=== PATIENT | male | born 1955 | race Caucasian/White ===

== ENCOUNTER 2019-09-14 13:30 | Outpatient (RCR) | payer MEDICARE, BC, SELFPAY | END 2019-09-15 23:59 | LOC: DC 13:30 | PROVIDERS: Visit Provider Nurse Practitioner | DX: Z71.3 Dietary counseling and surveillance (principal); E11.9 Type 2 diabetes mellitus without complications | CPT/HCPCS: 97802; G0108 ==

== ENCOUNTER 2019-10-05 15:00 | Outpatient (RCR) | payer MEDICARE, BC, SELFPAY ==
[2017-07-19 10:10] VITALS: BMI 25.8
== END 2019-10-15 23:59 | disposition home or self-care (01) ==
LOC: DC 15:00
PROVIDERS: Visit Provider Nurse Practitioner
DX: Z71.3 Dietary counseling and surveillance (principal); E11.9 Type 2 diabetes mellitus without complications
CPT/HCPCS: G0108

== ENCOUNTER 2019-10-18 13:00 | Outpatient (RCR) | payer MEDICARE, BC, SELFPAY ==
[2017-07-19 10:10] VITALS: BMI 25.8
== END 2019-11-15 23:59 ==
LOC: DC 13:00
PROVIDERS: Visit Provider Nurse Practitioner
DX: Z71.3 Dietary counseling and surveillance (principal); E11.9 Type 2 diabetes mellitus without complications
CPT/HCPCS: 97803

== ENCOUNTER 2019-11-29 13:30 | Outpatient (RCR) | payer MEDICARE, BC, SELFPAY ==
[2017-07-19 10:10] VITALS: BMI 25.8
== END 2019-12-16 23:59 ==
LOC: DC 13:30
PROVIDERS: Visit Provider Nurse Practitioner
DX: Z71.3 Dietary counseling and surveillance (principal); E11.9 Type 2 diabetes mellitus without complications
CPT/HCPCS: 97803; G0109

== ENCOUNTER 2020-01-09 13:00 | Outpatient (RCR) | payer MEDICARE, BC, SELFPAY ==
[2017-07-19 10:10] VITALS: BMI 25.8
== END 2020-01-14 23:59 ==
LOC: DC 13:00
PROVIDERS: Visit Provider Nurse Practitioner
DX: Z71.3 Dietary counseling and surveillance (principal); E11.9 Type 2 diabetes mellitus without complications
CPT/HCPCS: 97803; G0109

== ENCOUNTER → 2020-03-09 12:28 | Outpatient (CLI) | payer MEDICARE, BC, SELFPAY ==
--- NOTE | 2020-03-09 12:44 | RAD_ITS ---
STUDY: X-RAY - CERVICAL SPINE REASON FOR EXAM: Male, 64 years old. CHRONIC NECK PAIN -- HX OF FUSION TECHNIQUE: 5 view(s) of the cervical spine were obtained. COMPARISON: None FINDINGS: Normal anterior atlantoaxial articulation. Normal odontoid process. The patient is status post anterior fusion from C5 to T1. There is multilevel spondylosis with narrowing of disc spaces from C5 to T1. There is near fusion at. The disc height from C2 to C5 is fairly well preserved. Variable degrees from mild to moderate neural foraminal encroachment noted. The soft tissue structures are unremarkable. There is no demonstrated fracture of the cervical spine. RAD/Cerv Spine 4 or 5 Views IMPRESSION: Postoperative changes as described above with underlying degenerative disease. No acute fracture or subluxation seen. Electronically Signed: Gemma Lipscomb MD at 0:26 EDT , Service support ,
== END ==
PROVIDERS: PCP Nurse Practitioner; Referring Provider Nurse Practitioner; Visit Provider Nurse Practitioner
DX: M54.2 Cervicalgia (principal)
CPT/HCPCS: 72050

== ENCOUNTER 2020-05-17 16:34 | Emergency (ER) | payer MEDICARE, BC, SELFPAY ==
[2020-05-17 16:35] VITALS: BP 150/96; PULSE 101; RESP 20; TEMP 36.4; O2SAT 97; BMI 27.3
--- NOTE | 2020-05-17 17:01 | ED.DCSUM_ITS ---
History of Present Illness Chief Complaint: Eye Problem Informant: Patient Onset: Today Narrative: Presents with left eye burning after accidental splash of 7 insect killer 1 hour prior to arrival. States chemical used on gardening with vegetables and accidentally turned and sprayed him in the face. He states only burning to his left eye he did flush it with water. States some blood in his nose and mouth. Denies throat pain or abdominal pain. No fevers. He does not wear contacts. Occasional reading glasses. Recent cataract repair this past October. He states no changes in vision. Patient brought the label, apparently noted pyrenthroid product that can cause numbness and tingling to the skin. He states mild on his hands. No facial tingling. Prior similar symptoms: No Past Medical History - Allergies and Home Meds Allergies/Adverse Reactions: Allergies alcohol Allergy (Verified 07/19/17 10:12) Other Primary Care Physician: Bernarda Walters NP-C [Primary Care Provider] - Past Medical History: - - Diabetes, hypertension, hyperlipidemia Surgical History: cataract, cholecystectomy Smoking Status: Never smoker - Family History Maternal Family History: Reports: No pertinent history Review of Systems General: Denies: Chills, Fever, Sweats Eyes: Reports: - - Left eye burning. Denies: Visual changes - bilaterally, Di plopia ENT: Denies: Rhinorrhea, Sore throat Cardiovascular: Denies: Chest pain, Palpitations Respiratory: Denies: Dyspnea, Cough, Dyspnea on exertion Gastrointestinal: Denies: Abdominal pain, Nausea, Vomiting, Diarrhea, Melena, Hematochezia Genitourinary: Denies: Dysuria, Hematuria, Frequency Musculoskeletal: Denies: Back pain, Extremity Pain Skin: Denies: Rash, Wounds Neurological: Denies: Headache, Weakness, Numbness Physical Exam Vital Signs/Narrative: Vital Signs Temp Pulse Resp BP Pulse Ox 05/17/20 16:35 97.6 F L 101 H 230 H 150/96 H 97 Inital Vital Signs reviewed: Yes General: Well nourished, Well developed, No Acute Distress Head: Normocephalic, Atraumatic Eyes: Perrl, EOMI, - - No erythema of the sclera, no gross visualization of any injury. No pain with eye movement. ENT: Moist mucous membranes, No rhinorrhea Neck: Supple, Nontender Cardiovascular: Regular rate, Regular rhythm, No murmurs Respiratory: No distress, CTA bilaterally, Chest nontender Abdomen: Soft, Nontender, Nondistended, Normal bowel sounds Back: Nontender, Normal Inspection Extremities: Nontender, No edema Skin: Normal color, No rash Neurological: Alert, Oriented x3, Cranial nerves II-XII grossly intact, Normal Strength, Normal Sensation Psychological: Normal affect, Normal Mood Diagnostic/Tx/Re-eval - Medical Decision Making Patient nontoxic due to chemical exposure to the eye with burning, tetracaine will be placed the left eye with Hal lens and a saline flush prior to any other extensive exams at this time. 0620: After irrigation symptoms improved. Visual acuity was 20/25 each eye. Litmus paper with pH measure was neutral on both eyes. Patient will use rewetting drops as needed Follow-up with his eye doctor for reevaluation as an outpatient. ED Disposition - Plan for ED Patient: Disposition: Home or Assisted Living Diagnosis: Chemical injury of eye Instructions: ED Exp Chemical Eye Referrals: Bernarda Walters, CALE-C [Primary Care Provider] - Additional Instructions: Follow-up with your eye doctor for reevaluation. Use rewetting drops as needed.
[2020-05-17] MEDS: Tetracaine 0.5% Ophthalmic Bottle 1 DRP LEFT EYE (17:12)
[2020-05-17 18:10] VITALS: BP 148/75; PULSE 105; RESP 16; O2SAT 97
== END 2020-05-17 18:55 | disposition home or self-care (01) ==
PROVIDERS: Emergency Provider Emergency Medicine; PCP Nurse Practitioner
DX: T26.92XA Corrosion of left eye and adnexa, part unspecified, initial encounter (principal); Y93.9 Activity, unspecified; Y92.9 Unspecified place or not applicable; I10 Essential (primary) hypertension; E11.9 Type 2 diabetes mellitus without complications; E78.5 Hyperlipidemia, unspecified; Z79.4 Long term (current) use of insulin; Z79.84 Long term (current) use of oral hypoglycemic drugs; Z79.899 Other long term (current) drug therapy
CPT/HCPCS: 99282; J7030

== ENCOUNTER 2020-06-21 09:42 | Outpatient (RCR) | payer MEDICARE, BC, SELFPAY ==
[2017-07-19 10:10] VITALS: BMI 25.8
== END 2020-06-21 23:59 | disposition home or self-care (01) ==
LOC: DC 09:42
PROVIDERS: PCP Nurse Practitioner; Visit Provider Nurse Practitioner
DX: Z71.3 Dietary counseling and surveillance (principal); E11.9 Type 2 diabetes mellitus without complications
CPT/HCPCS: G0109

== ENCOUNTER 2020-10-23 18:03 | Emergency (ER) | payer MEDICARE, BC, SELFPAY ==
[2020-10-23 18:03] VITALS: BP 112/81; PULSE 107; RESP 20; TEMP 35.6; O2SAT 98; BMI 28.2
--- NOTE | 2020-10-23 19:18 | ED.DCSUM_ITS ---
History of Present Illness Chief Complaint: Fall Informant: Patient Narrative: Patient presents with right rib pain after a fall. This was a mechanical fall while walking on ice on an incline. No head injury no neck pain he is not on any blood thinners. His main complaint is right rib pain and right hip pain although he can ambulate. He has no back pain. Pain is moderate and achy. Past Medical History - Allergies and Home Meds Allergies/Adverse Reactions: Allergies alcohol Allergy (Verified 07/19/17 10:12) Other Primary Care Physician: Bernarda Walters MRI SUPERVISOR, MRI SUPERVISOR-C [Nurse Practitioner] - Past Medical History: - - Hypertension, hypercholesterolemia, diabetes Surgical History: cataract, cholecystectomy Smoking Status: Never smoker - Family History Maternal Family History: Reports: No pertinent history Review of Systems All systems negative except as indicated General: Reports: - - Loss of consciousness Eyes: Denies: Visual changes - bilaterally ENT: Reports: - - No facial trauma Cardiovascular: Reports: Chest pain Respiratory: Denies: Dyspnea, Cough, Sputum Gastrointestinal: Denies: Abdominal pain, Nausea, Vomiting Genitourinary: Denies: Dysuria Musculoskeletal: Reports: Extremity Pain Skin: Denies: Abrasions, Wounds Neurological: Denies: Headache, Weakness, Parasthesia, Numbness Hematologic: Denies: Easy bruising, Easy bleeding, Lymphadenopathy Allergy: Denies: Uticaria Physical Exam Vital Signs/Narrative: Vital Signs Temp Pulse Resp BP Pulse Ox 10/23/20 18:03 96.1 F L 107 H 20 H 112/81 H 98 General: Well nourished, Well developed Head: Normocephalic, Atraumatic Eyes: Perrl ENT: Moist mucous membranes Neck: Supple Cardiovascular: Regular rate, Regular rhythm Respiratory: No distress, CTA bilaterally, Chest tenderness, - - Right-sided chest wall tenderness in the inferior ribs in the anterior axillary line region. No obvious contusion seen. No deformity. Abdomen: Soft, Nontender Back: Nontender, Normal Inspection. Negative for: CVA tenderness, Spinal tenderness Extremities: Nontender, No edema, Tenderness, - - Some tenderness over the right greater trochanter. There is no tenderness over the hip or tenderness with logrolling or flexion and extension. Pelvis is stable without any pain Skin: No Trauma Neurological: Normal Strength, Normal Sensation Diagnostic/Tx/Re-eval Rib x-rays 3 views interpreted by radiologist and emergency doctor shows no fracture normal lung markings and no pneumothorax. Right hip x-ray interpreted by emergency doctor and radiologist shows no fracture normal alignment. - Medical Decision Making Patient has normal x-rays. He will be discharged in stable condition with analgesia. ED Disposition - Plan for ED Patient: Disposition: Home or Assisted Living Diagnosis: Rib contusion, Contusion, hip Instructions: ED Mechanical Fall, ED Soft Tissue Contusion, ED Contusion, Rib Prescriptions: Hydrocodone Bitart/Apap 5-325 [[place] 5MG-325MG] 1 tab PO Q4H PRN PRN 2 Days #10 10 PRN Reason: Pain Prescription Printed Referrals: Bernarda Walters MRI SUPERVISOR, MRI SUPERVISOR-C [Nurse Practitioner] - 2 Days
--- NOTE | 2020-10-23 19:18 | RAD_ITS ---
STUDY: X-RAY - UNILATERAL RIBS ( RIGHT ) WITH CHEST REASON FOR EXAM: Male, 65 years old. FALL TODAY. RIGHT ANTERIOR RIB PAIN. TECHNIQUE - RIBS: 4 view(s) of the ribs. TECHNIQUE - CHEST: Single PA view of the chest. COMPARISON: None. FINDINGS - RIBS: Normal visualized ribs without a demonstrated fracture. FINDINGS - CHEST: Cervical spine hardware is present. The lungs are clear and expanded. There is no demonstrated pleural abnormality. Normal size heart. Normal mediastinum and jenny. Normal visualized pulmonary arteries. There is atherosclerotic tortuosity of the aortic arch and descending thoracic aorta. There are diffuse degenerative changes of the visualized thoracic spine. Normal visualized ribs, clavicles, and shoulders. There is no demonstrated abnormality of the visualized soft tissue structures of the upper abdomen. Right upper quadrant surgical clips noted. RAD/Ribs Uni Min 3V w/PA Chest IMPRESSION: RIBS: Normal x-ray examination of the ribs. CHEST: Degenerative changes, as described above. No demonstrated acute cardiopulmonary process. Electronically Signed: Bruce Murphy MD at 20:28 EST , Service support ,
--- NOTE | 2020-10-23 19:30 | RAD_ITS ---
STUDY: X-RAY - PELVIS AND RIGHT HIP REASON FOR EXAM: Male, 65 years old. FALL TODAY. RIGHT HIP PAIN. TECHNIQUE: 3 views of the pelvis and hip. COMPARISON: None. FINDINGS: There is a non-specific bowel gas pattern. Normal visualized soft tissue structures. No visualized fracture is placed bony fragment. Normal bilateral iliac wings, sacroiliac joints and visualized sacrum. Normal bilateral superior and inferior pubic rami. Normal pubic symphysis. Normal bilateral ischial tuberosities. Normal visualized femoral head. Normal acetabulum. Normal hip joint. RAD/HIP, UNI W/ Pelvis 2-3 Views IMPRESSION: Normal x-ray examination of the pelvis and hip. Electronically Signed: Bruce Murphy MD at 20:27 EST , Service support ,
[2020-10-23] MEDS: HYDROcodone Bitartrate/Apap 5/325 Tablet PO (19:41)
== END 2020-10-23 20:44 | disposition home or self-care (01) ==
PROVIDERS: Emergency Provider Emergency Medicine; PCP Family Medicine
DX: S20.211A Contusion of right front wall of thorax, initial encounter (principal); S70.01XA Contusion of right hip, initial encounter; W19.XXXA Unspecified fall, initial encounter; Y93.01 Activity, walking, marching and hiking; Y92.9 Unspecified place or not applicable; I10 Essential (primary) hypertension; E11.9 Type 2 diabetes mellitus without complications; E78.00 Pure hypercholesterolemia, unspecified; Z79.4 Long term (current) use of insulin; Z79.899 Other long term (current) drug therapy
CPT/HCPCS: 71101; 73502; 99283

== ENCOUNTER → 2021-06-05 11:48 | Outpatient (CLI) | payer MEDICARE, SELFPAY ==
[2021-06-05 15:14] LABS: Absolute Lymphocyte Count 1.22 X10^3/uL (0.83-4.51); Absolute Neutrophil Count 3.8 X10^3/uL (2.0-7.7); Basophil# 0.05 X10^3/uL; Basophil% 0.9 % (0-1); Eosinophil# 0.29 X10^3/uL; Hematocrit 42.1 % (40-54); Hemoglobin 14.4 g/dL (13.0-16.5); Lymphocyte # 1.22 X10^3/ul (0.83-4.51); Lymphocyte % 21.2 % (19-41); Mean Corp Hgb Conc 34.2 g/dL (32-36); Mean Corpuscular Hgb 31.8 pg (27.0-32.0); Mean Corpuscular Volume 92.9 fL (80-94); Mean Platelet Vol. 9.7 fl (6.2-12.0); Monocyte# 0.41 X10^3/uL; Monocyte% 7.1 % (0-10); NRBC Flagged by Analyzer 0 % (0-5); Neutrophil # 3.77 X10^3/uL (2.7-7.7); Neutrophil % 65.5 % (47-70); Platelet Count 279 K/mm3 (150-450); RBC Distribution Width CV 12.8 % (11.6-14.6); RBC Distribution Width SD 43.7 fl (35.1-43.9); Red Blood Count 4.53 M/mm3 (4.6-6.2); White Blood Count 5.8 K/mm3 (4.4-11.0)
[2021-06-05 15:43] LABS: ALB/GLOB Ratio 0.9 RATIO (0.9-2.4); AST(SGOT) 15 U/L (15-37); Alanine Aminotransfer ALT/SGPT 22 U/L (16-61); Albumin, Serum 3.5 g/dL (3.2-5.0); Alkaline Phosphatase 128 U/L (45-117); Anion Gap 6 (5-15); BUN 13 mg/dL (7-18); BUN/Creat Ratio 11.1 RATIO (10-20); Calcium,Total 9.1 mg/dL (8.5-10.1); Chloride 105 mmol/L (98-107); Cholesterol 302 mg/dL (200); Creatinine, Serum 1.17 mg/dL (0.70-1.30); EST Glomerular Filtration Rate 66 mL/min (>60); Est Glom Filt Rate - Afr Amer 80 mL/min (>60); Glucose 170 mg/dL (74-106); High Density Lipoprotein 38 mg/dL; Potassium 3.6 mmol/L (3.5-5.1); Protein, Total 7.5 g/dL (6.4-8.2); Sodium Level 140 mmol/L (136-145); Triglycerides 531 mg/dL
[2021-06-05 16:01] LABS: Microalbumin:Creatinine Ratio 441.2 mg/g CRE (<30 mg/g CRE)
== END ==
PROVIDERS: PCP Family Medicine; Referring Provider Family Medicine; Visit Provider Family Medicine
DX: Z00.00 Encounter for general adult medical examination without abnormal findings (principal); E11.65 Type 2 diabetes mellitus with hyperglycemia; I10 Essential (primary) hypertension; E11.69 Type 2 diabetes mellitus with other specified complication; E78.5 Hyperlipidemia, unspecified
CPT/HCPCS: 36415; 80053; 80061; 82043; 82570; 85025

== ENCOUNTER 2022-10-13 11:40 | Outpatient (CLI) | payer MEDICARE, SELFPAY ==
--- NOTE | 2022-10-13 11:42 | RAD_ITS ---
INDICATION: PAIN AND SWELLING X 2 WEEKS EXAMINATION/TECHNIQUE: X-RAY - LEFT XR Ankle Min 3 Views 3 VIEWS COMPARISON: None. FINDINGS: SOFT TISSUES: Mild diffuse soft tissue swelling. No subcutaneous emphysema. No radiopaque foreign body. No joint effusion. BONES/JOINTS: No acute fracture or osteochondral defect.. Normal alignment and mortise spacing. Osseous proliferation of the dorsal anterior talonavicular joint. Calcaneal enthesophytes. No aggressive osseous lesion RAD/Ankle min 3 Views IMPRESSION: Diffuse ankle edema is nonspecific and can be systemic, secondary to venous insufficiency, trauma or infection. No acute osseous finding Electronically Signed: Adam Rose MD at 5:37 EST ,
== END 2022-10-13 23:59 | disposition home or self-care (01) ==
PROVIDERS: PCP Family Medicine; Referring Provider Family Medicine; Visit Provider Family Medicine
DX: M25.572 Pain in left ankle and joints of left foot (principal); R60.0 Localized edema; M79.89 Other specified soft tissue disorders
CPT/HCPCS: 73610

== ENCOUNTER → 2023-01-28 | Outpatient (CLI) | payer MEDICARE, SELFPAY ==
[2023-01-28 17:14] LABS: Absolute Neutrophil Count 4.7 X10^3/uL (2.0-7.7); Basophil# 0.06 X10^3/uL; Basophil% 0.8 % (0-1); Eosinophil# 0.47 X10^3/uL; Eosinophils% 6.5 % (0-5); Hematocrit 42.2 % (40-54); Hemoglobin 13.8 g/dL (13.0-16.5); Lymphocyte % 19.2 % (19-41); Mean Corp Hgb Conc 32.7 g/dL (32-36); Mean Corpuscular Hgb 31.9 pg (27.0-32.0); Mean Corpuscular Volume 97.5 fL (80-94); Mean Platelet Vol. 9.9 fl (6.2-12.0); Monocyte% 8.2 % (0-10); NRBC Flagged by Analyzer 0 % (0-5); Neutrophil # 4.73 X10^3/uL (2.7-7.7); Platelet Count 312 K/mm3 (150-450); RBC Distribution Width CV 12.8 % (11.6-14.6); RBC Distribution Width SD 46.2 fl (35.1-43.9); Red Blood Count 4.33 M/mm3 (4.6-6.2); White Blood Count 7.3 K/mm3 (4.4-11.0)
[2023-01-28 19:39] LABS: AST(SGOT) 18 U/L (15-37); Alanine Aminotransfer ALT/SGPT 21 U/L (16-61); Albumin, Serum 3.5 g/dL (3.2-5.0); Alkaline Phosphatase 124 U/L (45-117); Anion Gap 6 (5-15); BUN 23 mg/dL (7-18); BUN/Creat Ratio 15.5 RATIO (10-20); Calcium,Total 9.4 mg/dL (8.5-10.1); Chloride 106 mmol/L (98-107); Cholesterol 212 mg/dL (200); Creatinine, Serum 1.48 mg/dL (0.70-1.30); EST Glomerular Filtration Rate 50 mL/min (>60); Est Glom Filt Rate - Afr Amer 61 mL/min (>60); Globulin 3.5 g/dL (2.2-4.2); Glucose 165 mg/dL (74-106); High Density Lipoprotein 42 mg/dL; Potassium 4.4 mmol/L (3.5-5.1); Sodium Level 142 mmol/L (136-145); Triglycerides 239 mg/dL; Very Low Density Lipoprotein 48 mg/dL (5-40)
== END | disposition home or self-care (01) ==
LOC: LABSPEC 16:33
PROVIDERS: PCP Family Medicine; Referring Provider Family Medicine; Visit Provider Family Medicine
DX: E11.65 Type 2 diabetes mellitus with hyperglycemia (principal); E11.69 Type 2 diabetes mellitus with other specified complication; I10 Essential (primary) hypertension; E78.5 Hyperlipidemia, unspecified; Z12.5 Encounter for screening for malignant neoplasm of prostate
CPT/HCPCS: 80053; 80061; 82043; 82570; 85025

== ENCOUNTER 2023-02-11 07:24 | Inpatient (IN) | payer MEDICARE, SELFPAY ==
[2023-02-11] VITALS (9 sets, daily range): BP systolic 118–151; BP diastolic 65–98; PULSE 96–128; RESP 13–24; TEMP 37–38.8; O2SAT 88–98; BMI 26.7; BMI 26.6
--- NOTE | 2023-02-11 07:37 | RAD_ITS ---
STUDY: X-RAY CHEST REASON FOR EXAM: Male, 67 years old. Fever TECHNIQUE: Single AP portable view of the chest. COMPARISON: Comparison is made with prior study dated October 23, 2020. FINDINGS: EKG electrodes are seen. Hyperinflation. The lungs are clear. There is no demonstrated pleural abnormality. Normal size heart. Normal mediastinum and jenny. Normal visualized pulmonary arteries. Normal visualized aortic arch and descending thoracic aorta. There are diffuse degenerative changes of the visualized thoracic spine. Dextroscoliosis. Prior fusion of the lower cervical spine. There is no demonstrated abnormality of the visualized soft tissue structures of the upper abdomen. RAD/Chest 1 View (Portable) IMPRESSION: Hyperinflation. The lungs are clear. Electronically Signed: Neo Cody MD at 8:13 EDT ,
--- NOTE | 2023-02-11 07:37 | EKG12_ITS ---
Test Reason : SEPTIC WORK UP Blood Pressure : / mmHG Vent. Rate : 122 BPM Atrial Rate : 122 BPM P-R Int : 132 ms QRS Dur : 084 ms QT Int : 314 ms P-R-T Axes : 050 -12 049 degrees QTc Int : 447 ms Sinus tachycardia Otherwise normal ECG Confirmed by JOESPH BRADLEY, OSCAR ([id number]), primer expeditor and drier BERTHA ONTIVEROS ([id number]) on 02/16/2023 6:58:02 AM Referred By: Confirmed By:DANIELLA PINK MD
--- NOTE | 2023-02-11 07:39 | EDS_ITS ---
HPI History of Present Illness Chief Complaint: Weakness Detail of Chief Complaint: Fever Informant: patient and spouse/S.O. Onset/Context/Timing Onset: Days Context: Gradual Onset Timing: Continuous Current Severity: Moderate Maximum Severity: Moderate Narrative Narrative: 67-year-old male past medical history of chronic pain and insulin-dependent diabetes. Prior neck surgery and cholecystectomy. said since Thursday he has not been feeling well he has had difficulty walking because he has been weak. Thursday started having shaking with nausea and vomiting. He said he urinated on himself. Today, he tried to get out of bed and fell twice because he was so weak. He denies any injuries. He did not hit his head. No LOC. Patient's had nausea and vomiting and fever as high as 103.1. No significant cough. No dysuria. No one else at home is ill. He has not been recently hosp italized. He has no diarrhea. Prior similar symptoms: No Recent Illness/Hospitalization: No PFSH PFSH Home Medications Norvasc 5 mg PO DAILY 07/20/14 [History Last Taken 07/19/14] fenofibric acid (choline) 135 mg capsule,delayed release (Trilipix) 135 mg PO DAILY 07/20/14 [History Last Taken 07/19/14] icosapent ethyl 1 gram capsule (Vascepa) 2 g PO BID 07/20/14 [History Last Taken Unknown] insulin detemir U-100 100 unit/mL (3 mL) subcutaneous pen (Levemir FlexTouch U- 100 Insulin) 25 units subcut BID 07/20/14 [History Last Taken 07/19/14] lisinopril 20 mg tablet 20 mg PO DAILY 07/20/14 [History Last Taken 07/19/14] metformin 1,000 mg tablet (Glucophage) 1,000 mg PO BID 07/20/14 [History Last Taken 07/19/14] baclofen 10 mg tablet 10 mg PO DAILY PRN PRN Muscle Spasm 05/17/20 [History Last Taken Unknown] cyclobenzaprine 10 mg tablet 10 mg PO DAILY PRN PRN Muscle Spasm 05/17/20 [History Last Taken Unknown] glimepiride 2 mg tablet 2 mg PO DAILY 05/17/20 [History Last Taken Unknown] Allergy/AdvReac Type Severity Reaction Status Date / Time alcohol Allergy Other Verified 02/11/23 07:26 Social History Smoking Status: Never smoker ROS ROS ED ROS Narrative Fever, weakness, nausea and vomiting. Constitutional Constitutional ED: Reports chills and fever(s) Eyes Eyes: Denies blurry vision ENT ENT ED: Denies ear pain or sore throat Cardiovascular Cardiovascular: Denies chest pain Respiratory/Chest Respiratory/Chest: Denies cough or dyspnea Gastrointestinal Gastrointestinal: Reports nausea and vomiting; Denies abdominal pain, constipation, diarrhea or melena Genitourinary Genitourinary ED: Denies dysuria or hematuria Musculoskeletal Musculoskeletal: Denies arthralgias Integumentary Denies abscess Neurologic Neurologic: Denies headache(s) Psychiatric Psychiatric: Denies anxiety or depression Endocrine Endocrinology: Denies cold intolerance Hematologic/Lymphatic Hematologic/Lymphatic: Reports none Allergic/Immunologic Allergic/Immunologic ED: Denies mouth swelling or tongue swelling EXAM Physical Exam Narrative Exam Narrative: 67-year-old male appears ill. Clinically looks dehydrated. Vital signs show fever 101.9. Pulse rate of 128. Pressure is 144/98. Pulse ox 93% on room air no hypoxia. and another family member in the room. H EENT exam dry mucous membranes. No signs of trauma to his face or scalp. Neck nontender. Well- healed prior posterior cervical scar. Trachea midline. No meningismus. Lungs clear to auscultation bilaterally. Heart tachycardic rate about 130 no murmur. Abdomen is soft, nontender, nondistended normal bowel sounds no peritoneal signs. No bruising. Pelvic girdle intact. Hips are nontender. No shortening or rotation. He is moving all 4 extremities. Nontender. Normal video production assistant strength. Normal dorsi plantarflexion. He can lift either leg. Back is nontender. When I go to sitting up he is so weak he cannot do it by himself. I have to help him a lot to sit upright. Neurologically is awake and alert answering questions and following commands. He is generally weak but not focal to one side or 1 extremity. Const Vital Signs: 02/11/23 07:27 02/11/23 07:34 02/11/23 07:32 Temperature 101.9 F H 101.9 F H Temperature Source Oral Oral Pulse Rate 128 H 128 H Respiratory Rate 24 H 24 H Respiratory Effort Normal Non-Labored Respiratory Pattern Tachypnea Blood Pressure 144/98 H 144/98 H Blood Pressure Mean 113 113 Pulse Ox 93 93 Oxygen Delivery Method Room Air Room Air Oxygen Flow Rate (L/min) 02/11/23 07:37 02/11/23 08:32 Temperature 99.9 F H Temperature Source Oral Pulse Rate 113 H Respiratory Rate 13 Respiratory Effort Respiratory Pattern Blood Pressure 140/79 H Blood Pressure Mean 99 Pulse Ox 95 Oxygen Delivery Method Room Air Nasal Cannula Oxygen Flow Rate (L/min) 2 Positive well nourished and well developed; Negative for obese, cachectic, contractures or unkempt General Appearance ED: well developed; Negative for unkempt, cachectic, contractures, cyanotic, diaphoretic or NAD Nutritional Appearance: Negative for cachectic or obese HEENT Reports dry mucous membranes; Denies moist mucous membranes Negative for trauma or tenderness Mouth ED: Yes dry mucous membranes Mouth: dry mucous membranes Eyes PERRL and EOMs intact bilaterally General Eye ED: Negative for pale conjunctiva or scleral icterus Neck no lymphadenopathy, supple and no JVD General: Negative for tenderness Lymph Lymphatic: Negative for other Chest Wall inspection of chest normal and palpation of chest normal Resp normal respiratory effort and clear to auscultation bilaterally Effort and Inspection: Negative for retractions Auscultation: Negative for rales, rhonchi or wheezes Cardio regular rhythm, S1 normal heart sound, S2 normal heart sound and no murmurs; Negative for regular rate Rate: tachycardic; Negative for bradycardia GI normal to inspection, nondistended, normoactive bowel sounds, non-tender, non- distended and no masses Inspection: Negative for abdominal distention Palpation: soft; Negative for tender, guarding, mass or rebound tenderness present Back/Spine no CVA tenderness General Back: Negative for CVA tenderness Cervical Spine: Negative for cervical spine tenderness Thoracic Spine / Upper Back: Negative for thoracic spinal tenderness Lumbar Spine / Lower Back: Negative for lumbar spinal tenderness Extremity normal to inspection General Extremety ED: Negative for edema, tenderness or other findings General Extremity: Negative for edema or other findings Neuro oriented x3 and CN's II-XII intact bilaterally Neuro Narrative: Generalized weakness. Can move all 4 extremities. He is unable to stand due to weakness. Sensorium / Orientation: alert; Negative for orientation impaired Motor Exam: Negative for strength 5/5 throughout, general weakness or strength abnormal Psych mental status grossly normal Appearance: Negative for unkempt Attitude: No agitated Mood & Affect: Negative for depressed, anxious or tearful Skin no rashes or lesions noted and no wounds General Skin Exam: Negative for jaundice Lesions: No lesion noted Rashes: No rashes noted Trauma: Negative for abrasion Wounds: Negative for wounds noted Sepsis Attestation Sepsis Alert: Yes Date exam was performed: 02/11/23 Time exam was performed: 07:30 Possible Source of Sepsis: Genitourinary Sepsis Organ Dysfunction Criteria Present: Creatinine > 2.0 mg/dL and Lactic Acid > 2 mmol/L Fluid Resuscitation Fluid resuscitation indicated?: Yes Fluid Resuscitation ordered: 30 ml/kg fluid bolus ordered MDM MDM MDM Narrative Medical decision making narrative: 67-year-old male fever with nausea and vomiting. Clinically is dehydrated. Generally weak. Patient will eventually need to be admitted. He will undergo a clinical work-up for possible sepsis. Received 2 L normal saline. Zofran for nausea. Tylenol for his fever. Labs and chest x-ray will be obtained. COVID and influenza. Blood cultures. COVID and influenza swabs are negative. Repeat exam patient is doing much better is received a liter plus of IV fluids. His current blood pressure is 140/79 and his heart rate is improving to 113. After Tylenol his current temperature is 99.9. He is resting comfortably he looks and feels improved. I discussed at length his test results with both he and his family. Given the elevated white count, dehydration,, acute kidney injury, leukocytosis and fever I suspect there is an underlying infection obviously it might be a UTI awaiting the urine culture results of blood culture results. He is at least a SIRS criteria at this time. I will speak to the hospitalist about admission. History & Record Review Discussion w/independent historian: Patient and Family Lab Data Attestation: I reviewed the patient's lab results. Lab results narrative: CBC shows an elevated white count of 15.3. H&H of 14.2 and 43. Platelets 318. UA shows no nitrites. But greater than 100 white cells. No bacteria. No red cells. PT, INR and PTT are unremarkable. Electrolytes show a gap of 8. BUN of 35 creatinine 2.18. Glucose 238. Liver enzymes are unremarkable. His BUN and creatinine are elevated consistent with DI. Acute kidney. His last creatinine was 1.4 and prior to that it was normal. Lactic acid is elevated 2.5. Labs: Laboratory Results - last 24 hr 02/11/23 02/11/23 02/11/23 07:10 07:10 07:10 WBC 15.3 H RBC 4.46 L Hgb 14.2 Hct 43.0 MCV 96.4 H MCH 31.8 MCHC 33.0 RDW Std Deviation 46.6 H RDW Coeff of Sandro 13.2 Plt Count 318 MPV 9.3 Immature Gran % (Auto) 0.700 Neut % (Auto) 83.9 H Lymph % (Auto) 7.0 L [place] % (Auto) 7.8 Eos % (Auto) 0.3 Baso % (Auto) 0.3 Absolute Neuts (auto) 12.8 H Absolute Lymphs (auto) 1.06 Nucleated RBC % 0 PT 14.4 INR 1.2 APTT 31.6 Sodium 136 Potassium 4.3 Chloride 102 Carbon Dioxide 26.0 Anion Gap 8 BUN 35 H Creatinine 2.18 H Estim Creat Clear Calc 33.02 Est GFR (MDRD) Af Amer 39 L Est GFR (MDRD) Non-Af 32 L BUN/Creatinine Ratio 16.1 Glucose 238 H Lactic Acid Calcium 9.5 Total Bilirubin 1.80 H AST 26 ALT 37 Alkaline Phosphatase 168 H Total Protein 8.2 Albumin 3.4 Globulin 4.8 H Albumin/Globulin Ratio 0.7 L Urine Color Urine Clarity Urine pH Ur Specific [place] Urine Protein Urine Glucose (UA) Urine Ketones Urine Occult Blood Urine Nitrite Urine Bilirubin Urine Urobilinogen Ur Leukocyte Esterase Urine RBC Urine WBC Ur Squamous Epith Cells Urine Bacteria Urine Mucus 02/11/23 02/11/23 07:46 07:50 WBC RBC Hgb Hct MCV MCH MCHC RDW Std Deviation RDW Coeff of [place] Plt Count MPV Immature Gran % (Auto) Neut % (Auto) Lymph % (Auto) [place] % (Auto) Eos % (Auto) Baso % (Auto) Absolute Neuts (auto) Absolute Lymphs (auto) Nucleated RBC % PT INR APTT Sodium Potassium Chloride Carbon Dioxide Anion Gap BUN Creatinine Estim Creat Clear Calc Est GFR (MDRD) Af Amer Est GFR (MDRD) Non-Af BUN/Creatinine Ratio Glucose Lactic Acid 2.5 H* Calcium Total Bilirubin AST ALT Alkaline Phosphatase Total Protein Albumin Globulin Albumin/Globulin Ratio Urine Color Yellow Urine Clarity Sl. Cloudy Urine pH 5.0 Ur Specific [place] 1.015 Urine Protein 30 H Urine Glucose (UA) 1000 H Urine Ketones Negative Urine Occult Blood 25 H Urine Nitrite Negative Urine Bilirubin Negative Urine Urobilinogen Normal Ur Leukocyte Esterase 500 H Urine RBC 0 SEEN Urine WBC >100 SEEN Ur Squamous Epith Cells 0 SEEN Urine Bacteria 0 SEEN Urine Mucus 0 SEEN Radiography Chest X-Ray - ED: 1 View, Read by ED Physician, Normal, Heart, Lungs, Mediastinum and Bony Structures Diagnostic Testing: Clinical Impression(s) from Imaging Studies Chest X-Ray 02/11/23 07:37 IMPRESSION: Hyperinflation. The lungs are clear. Electronically Signed: Neo Cody MD at 8:13 EDT , Chest x-ray, portable, single view, interpreted by myself shows no acute abnormality. Chronic changes. Normal cardiac silhouette. No infiltrates. No effusions. Rhythm Strip Rhythm Strip: Sinus Tach Rate: 122 Ectopy: None EKG Initial EKG: Attestation: I personally reviewed and interpreted this EKG as follows: Interpretation: No Acute Injury Pattern and Sinus Tachycardia Comments: Sinus tachycardia rate of 122. No acute signs of [place], dysrhythmia or ischemia. Management Discussion w/another healthcare provider: Hospitalist Critical Care Time Critical Care Time: Yes Critical care time (excluding procedures): 30-74 minutes, Including time spent:, Discussing w/Patient &/or Family/Moss Picker, Discussing w/Consultants, Arranging Admission or Transfer, Performing Direct Patient Care at Bedside and - (32 min) Discharge Plan Dx/Rx/DC Orders Clinical Impression: Fever, Generalized weakness, Unable to ambulate, Acute dehydration, History of diabetes mellitus Disposition Disposition: Acute Care [facility]
[2023-02-11 07:55] LABS: Bacteria 0 SEEN /hpf (None Seen); Mucous, Urine 0 SEEN /hpf (<or=2+); Red Blood Cells-Urine 0 SEEN /hpf (0-5); Squamous Epithelial Cells - UA 0 SEEN /hpf (0-5)
[2023-02-11] MEDS: 0.9% Normal Saline 1,000 ML 999 ML IV ×2 (07:55→09:15)
[2023-02-11] MEDS: Ondansetron 4 MG/2 ML Vial IV (07:55)
[2023-02-11] MEDS: Acetaminophen 325 MG Tablet 650 MG PO (07:55)
[2023-02-11 08:01] LABS: Absolute Lymphocyte Count 1.06 X10^3/uL (0.83-4.51); Absolute Neutrophil Count 12.8 X10^3/uL (2.0-7.7); Basophil# 0.05 X10^3/uL; Basophil% 0.3 % (0-1); Eosinophil# 0.05 X10^3/uL; Eosinophils% 0.3 % (0-5); Hemoglobin 14.2 g/dL (13.0-16.5); Lymphocyte # 1.06 X10^3/ul (0.83-4.51); Mean Corpuscular Hgb 31.8 pg (27.0-32.0); Mean Corpuscular Volume 96.4 fL (80-94); Mean Platelet Vol. 9.3 fl (6.2-12.0); Monocyte# 1.19 X10^3/uL; Monocyte% 7.8 % (0-10); NRBC Flagged by Analyzer 0 % (0-5); Neutrophil % 83.9 % (47-70); Platelet Count 318 K/mm3 (150-450); RBC Distribution Width CV 13.2 % (11.6-14.6); RBC Distribution Width SD 46.6 fl (35.1-43.9); Red Blood Count 4.46 M/mm3 (4.6-6.2); White Blood Count 15.3 K/mm3 (4.4-11.0)
[2023-02-11 08:07] LABS: Color, Urine Yellow (Yellow); Glucose, Dipstick 1000 mg/dl (Normal); Ketone-Dipstick Negative (Negative); Leukocyte Esterase-Dipstick 500 /ul (Negative); Nitrite-Dipstick Negative (Negative); Occult Blood-Urine 25 /ul (Negative); Protein-Dipstick 30 mg/dl (Negative); Specific Gravity, Urine 1.015 (1.002-1.030); Urine Bilirubin Dipstick Negative (Negative); Urine Clarity Sl. Cloudy (Clear); Urine Urobilinogen Normal (Normal)
[2023-02-11 08:11] LABS: International Normalized Ratio 1.2; Prothrombin Time (Protime)PT. 14.4 SECONDS (11.7-14.9)
[2023-02-11 08:12] LABS: Partial Thromboplast Time 31.6 Seconds (24.1-36.2)
[2023-02-11 08:12] LABS: White Blood Cells >100 SEEN /hpf (0-5)
[2023-02-11 08:19] LABS: ALB/GLOB Ratio 0.7 RATIO (0.9-2.4); AST(SGOT) 26 U/L (15-37); Alanine Aminotransfer ALT/SGPT 37 U/L (16-61); Albumin, Serum 3.4 g/dL (3.2-5.0); Alkaline Phosphatase 168 U/L (45-117); Anion Gap 8 (5-15); BUN 35 mg/dL (7-18); BUN/Creat Ratio 16.1 RATIO (10-20); Calcium,Total 9.5 mg/dL (8.5-10.1); Chloride 102 mmol/L (98-107); Creatinine, Serum 2.18 mg/dL (0.70-1.30); EST Glomerular Filtration Rate 32 mL/min (>60); Est Glom Filt Rate - Afr Amer 39 mL/min (>60); Estimated Creatinine Clearance 33.02 ml/min; Globulin 4.8 g/dL (2.2-4.2); Glucose 238 mg/dL (74-106); Potassium 4.3 mmol/L (3.5-5.1); Protein, Total 8.2 g/dL (6.4-8.2); Sodium Level 136 mmol/L (136-145)
[2023-02-11 08:34] LABS: Lactic Acid 2.5 mmol/L (0.4-1.9)
--- NOTE | 2023-02-11 09:00 | NURSING ---
DR AMADO QUINONES
--- NOTE | 2023-02-11 09:11 | NURSING ---
MED SURG AMADO FEVER, UTI, SIRS, DEHYDRATION, KALA, DM
[2023-02-11] MEDS: Ceftriaxone 1 GM/50 ML BAG IV (09:15)
--- NOTE | 2023-02-11 10:06 | HP.PCM.HOS_ITS ---
HPI - General General Date of Admission: 02/11/23 Date of Service: 02/11/23 Chief Complaint: flank pain HPI Narrative MINH WALTERS, is a 67 M who presents presents with several day history of flank pain, malaise, fever and chills, weakness. Patient was weak today and fell. In the emergency room, patient was concern for being septic and received 2 L of IV fluids. Urinalysis was positive for urinary tract infection patient did receive ceftriaxone. The hospital service was contacted for admission. Patient is complaining of his left flank causing pain. Patient denies any history of urinary tract infection kidney stones or pyelonephritis. FOR[facility]LY [facility] Medical History (Updated 02/11/23 @ 10:[address] Richard Real, DO) DM2 (diabetes mellitus, type 2) Dyslipidemia HTN (hypertension) Home Medications insulin detemir U-100 100 unit/mL (3 mL) subcutaneous pen (Levemir FlexTouch U- 100 Insulin) 25 units subcut DAILY 07/20/14 [History Last Taken 07/19/14] lisinopril 20 mg tablet 20 mg PO DAILY 07/20/14 [History Last Taken 07/19/14] metformin 1,000 mg tablet (Glucophage) 1,000 mg PO BID 07/20/14 [History Last Taken 07/19/14] baclofen 10 mg tablet 10 mg PO DAILY PRN PRN Muscle Spasm 05/17/20 [History Last Taken Unknown] cyclobenzaprine 10 mg tablet 10 mg PO DAILY PRN PRN Muscle Spasm 05/17/20 [History Last Taken Unknown] glimepiride 2 mg tablet 2 mg PO DAILY 05/17/20 [History Last Taken Unknown] amlodipine 5 mg tablet 5 mg PO DAILY 02/11/23 [History Last Taken Unknown] atorvastatin 40 mg tablet 40 mg PO QHS 02/11/23 [History Last Taken Unknown] cholecalciferol (vitamin D3) 1,250 mcg (50,000 unit) capsule 1,250 mcg PO QWEEK 02/11/23 [History Last Taken Unknown] gabapentin 100 mg capsule 200 mg PO QHS 02/11/23 [History Last Taken Unknown] meloxicam 15 mg tablet 15 mg PO DAILY 02/11/23 [History Last Taken Unknown] mirabegron 25 mg tablet,extended release 24 hr (Myrbetriq) 25 mg PO DAILY 02/11/23 [History Last Taken Unknown] Allergy/AdvReac Type Severity Reaction Status Date / Time alcohol Allergy Other Verified 02/11/23 07:26 Social History (Updated 02/11/23 @ 10:[address] Richard Real, DO) Smoking Status: Never smoker alcohol intake: never substance use type: does not use ROS ROS Narrative Does have some urinary frequency. Denies any hematuria or any foul odor in his urine. All review of systems were negative except as mentioned above in the history of present illness and the other review of systems. Vital Signs Vital Signs Vital Signs: 02/11/23 07:27 02/11/23 07:34 02/11/23 07:32 Temperature 38.8 C H 38.8 C H Temperature Source Oral Oral Pulse Rate 128 H 128 H Respiratory Rate 24 H 24 H Respiratory Effort Normal Non-Labored Respiratory Pattern Tachypnea Blood Pressure 144/98 H 144/98 H Blood Pressure Mean 113 113 Pulse Ox 93 93 Oxygen Delivery Method Room Air Room Air Oxygen Flow Rate (L/min) 02/11/23 07:37 02/11/23 08:32 02/11/23 09:24 Temperature 37.7 C H 37.4 C H Temperature Source Oral Oral Pulse Rate 113 H 104 H Respiratory Rate 13 14 Respiratory Effort Respiratory Pattern Blood Pressure 140/79 H 135/71 H Blood Pressure Mean 99 92 Pulse Ox 95 94 Oxygen Delivery Method Room Air Nasal Cannula Nasal Cannula Oxygen Flow Rate (L/min) 2 2 Weight Weight: 84.6 kg Body Mass Index (BMI) 26.7 Physical Exam Const alert Constitutional Narrative: Uncomfortable. Lying on his right side. Nontoxic-appearing. HEENT normocephalic and head/scalp atraumatic HEENT Narrative: Mucous membranes are dry Eyes Eyes Narrative: No icterus Neck no lymphadenopathy Neck Narrative: No thyromegaly Resp normal respiratory effort, no retractions, no use of accessory muscles and clear to auscultation bilaterally Cardio regular rate, regular rhythm, S1 normal heart sound and S2 normal heart sound GI normal to inspection, nondistended, normoactive bowel sounds and soft to palpation GI Narrative: Exquisite left CVA tenderness Extremity normal to inspection and no clubbing, cyanosis or edema Neuro oriented x3 and moves all extremities Sensorium / Orientation: awake and alert Psych affect normal Results Lab / Micro Data Attestation: I reviewed the patient's lab results. Result Diagrams: 02/11/23 07:10 02/11/23 07:10 Labs: Laboratory Results - last 24 hr 02/11/23 07:10: WBC 15.3 H, RBC 4.46 L, Hgb 14.2, Hct 43.0, MCV 96.4 H, MCH 31.8, MCHC 33.0, RDW Std Deviation 46.6 H, RDW Coeff of Sandro 13.2, Plt Count 318, MPV 9.3, Immature Gran % (Auto) 0.700, Neut % (Auto) 83.9 H, Lymph % (Auto) 7.0 L, [place] % (Auto) 7.8, Eos % (Auto) 0.3, Baso % (Auto) 0.3, Absolute Neuts (auto) 12.8 H, Absolute Lymphs (auto) 1.06, Nucleated RBC % 0 02/11/23 07:10: PT 14.4, INR 1.2, APTT 31.6 02/11/23 07:10: Sodium 136, Potassium 4.3, Chloride 102, Carbon Dioxide 26.0, Anion Gap 8, BUN 35 H, Creatinine 2.18 H, Estim Creat Clear Calc 33.02, Est GFR (MDRD) Af Amer 39 L, Est GFR (MDRD) Non-Af 32 L, BUN/Creatinine Ratio 16.1, Glucose 238 H, Calcium 9.5, Total Bilirubin 1.80 H, AST 26, ALT 37, Alkaline Phosphatase 168 H, Total Protein 8.2, Albumin 3.4, Globulin 4.8 H, Albumin/Globulin Ratio 0.7 L 02/11/23 07:46: Lactic Acid 2.5 H* 02/11/23 07:50: Urine Color Yellow, Urine Clarity Sl. Cloudy, Urine pH 5.0, Ur Specific [place] 1.015, Urine Protein 30 H, Urine Glucose (UA) 1000 H, Urine Ketones Negative, Urine Occult Blood 25 H, Urine Nitrite Negative, Urine Bilirubin Negative, Urine Urobilinogen Normal, Ur Leukocyte Esterase 500 H, Urine RBC 0 SEEN, Urine WBC >100 SEEN, Ur Squamous Epith Cells 0 SEEN, Urine Bacteria 0 SEEN, Urine Mucus 0 SEEN Micro: Microbiology 02/11/23 07:46 Nasal Secretion SARS-CoV-2 & FLU Antigen (Rapid) - Final Rhythm Strip Rhythm Strip: Sinus Tach Rate: 122 Ectopy: None Radiology Impression Chest X-Ray 02/11/23 07:37 IMPRESSION: Hyperinflation. The lungs are clear. Electronically Signed: Neo Cody MD at 8:13 EDT , Assessment & Plan Assessment/Plan (1) Sepsis: PLAN: Secondary to UTI/pyonephritis Received ceftriaxone in the emergency room and will continue Follow blood and urine cultures Currently hemodynamically stable and feel low risk for developing into septic shock at this time. (2) Pyelonephritis: PLAN: At the minimum, patient has urinary tract infection but with his left CVA tenderness, I am very concerned about pyelonephritis. Check ultrasound (3) KALA (acute kidney injury): PLAN: Secondary to decreased oral intake. Feel this is likely prerenal in etiology Patient received IV fluids emergency room and will given additional fluids as patient still does appear dehydrated. Ultrasound primarily to evaluate for pyelonephritis not for etiology of his acute kidney injury but will evaluate see if is any ureteral stones that may be contributing to this. 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 Hold metformin on account of acute kidney injury Check an A1c PLAN: Plan Chronic conditions * Hypertension: We will continue with amlodipine. Hold lisinopril on account of acute kidney injury for now * Hyperlipidemia: Continue with statin VTE prophylaxis with enoxaparin Charges/Coding Visit Charges Inpatient E&M: 61908 Init Hosp L3
--- NOTE | 2023-02-11 10:14 | US_ITS ---
STUDY: RENAL ULTRASOUND - COMPLETE REASON FOR EXAM: Male, 67 years old. Left flank pain. UTI. TECHNIQUE: Ultrasound evaluation of the kidneys was performed with real-time and static diehl-scale imaging. COMPARISON: None. FINDINGS: RIGHT KIDNEY: Normal location of the right kidney, which is normal in size. The right kidney measures 10.3 cm x 5.7 cm x 6.7 cm. There is a normal cortex of the right kidney. The renal cortex measures 1.3 cm. There is a 1.7 cm x 2 cm x 1.8 cm cyst in the inferior pole of the right kidney. There are no right renal calculi. There is no right hydronephrosis. DISTAL RIGHT URETER: There is non-visualization of the distal right ureter. There is no demonstrated right ureterovesical junction calculus. There is a visualized right ureteral jet. LEFT KIDNEY: Normal location of the left kidney, which is normal in size. The left kidney measures 10.6 cm x 6 cm x 5.7 cm. There is a normal cortex of the left kidney. The renal cortex measures 1 cm. There is no left renal mass or cyst. There are no left renal calculi. There is mild hydronephrosis of the left kidney. DISTAL LEFT URETER: There is non-visualization of the distal left ureter. There is no demonstrated left ureterovesical junction calculus. There is a visualized left ureteral jet. BLADDER: The distended urinary bladder has a volume of 362 ml. There is a normal wall thickness of the distended urinary bladder. There is no demonstrated mass within the urinary bladder. There are no demonstrated bladder calculi. US/Kidney and Bladder IMPRESSION: Small cyst in the lower pole of the right kidney. Mild degree of left hydronephrosis. Electronically Signed: Neo Cody MD at 15:23 EDT ,
[2023-02-11 11:50] LABS: Bedside Glucose 150 mg/dL (74-106)
[2023-02-11 11:54] LABS: Reflex Lactate? Y
[2023-02-11] MEDS: 0.9% Normal Saline 1,000 ML 150 ML IV (12:08)
[2023-02-11] MEDS: amLODIPine 5 MG Tablet PO (12:13)
[2023-02-11] MEDS: Mirabegron 25 MG TAB.ER.24H PO (12:13)
[2023-02-11 13:29] LABS: Lactic Acid 1.4 mmol/L (0.4-1.9)
[2023-02-11] MEDS: cycloBENZAPRine HCl 10 MG Tablet PO (14:55)
[2023-02-11] MEDS: Acetaminophen 500 MG Tablet 1000 MG PO ×2 (14:56→21:14)
[2023-02-11] MEDS: Insulin Lispro 100 UNIT/ML INSULN.PEN SC (17:23)
[2023-02-11] MEDS: Baclofen 10 MG Tablet PO (17:23)
[2023-02-11 17:30] LABS: Bedside Glucose 158 mg/dL (74-106)
[2023-02-11] MEDS: Atorvastatin Calcium 40 MG Tablet PO (21:14)
[2023-02-11] MEDS: Gabapentin 100 MG Capsule 200 MG PO (21:14)
[2023-02-11 21:56] LABS: Bedside Glucose 265 mg/dL (74-106)
[2023-02-11] MEDS: oxyCODONE 5 MG Tablet PO (23:27)
[2023-02-12] VITALS (7 sets, daily range): BP systolic 108–138; BP diastolic 66–76; PULSE 101–114; RESP 15–17; TEMP 36.9–38.3; O2SAT 92–95
[2023-02-12 05:03] LABS: Absolute Lymphocyte Count 0.92 X10^3/uL (0.83-4.51); Absolute Neutrophil Count 15.7 X10^3/uL (2.0-7.7); Basophil# 0.03 X10^3/uL; Basophil% 0.2 % (0-1); Eosinophil# 0.04 X10^3/uL; Eosinophils% 0.2 % (0-5); Hematocrit 37.2 % (40-54); Hemoglobin 11.9 g/dL (13.0-16.5); Lymphocyte # 0.92 X10^3/ul (0.83-4.51); Mean Corpuscular Hgb 31.6 pg (27.0-32.0); Mean Corpuscular Volume 98.9 fL (80-94); Mean Platelet Vol. 9.4 fl (6.2-12.0); Monocyte# 1.45 X10^3/uL; NRBC Flagged by Analyzer 0 % (0-5); Neutrophil # 15.65 X10^3/uL (2.7-7.7); Neutrophil % 85.8 % (47-70); Platelet Count 278 K/mm3 (150-450); RBC Distribution Width CV 13.1 % (11.6-14.6); RBC Distribution Width SD 47.1 fl (35.1-43.9); Red Blood Count 3.76 M/mm3 (4.6-6.2); White Blood Count 18.2 K/mm3 (4.4-11.0)
[2023-02-12] MEDS: Acetaminophen 500 MG Tablet 1000 MG PO ×3 (05:22→20:53)
[2023-02-12 05:30] LABS: ALB/GLOB Ratio 0.6 RATIO (0.9-2.4); AST(SGOT) 29 U/L (15-37); Alanine Aminotransfer ALT/SGPT 33 U/L (16-61); Albumin, Serum 2.5 g/dL (3.2-5.0); Alkaline Phosphatase 131 U/L (45-117); Anion Gap 6 (5-15); BUN 31 mg/dL (7-18); Calcium,Total 8.3 mg/dL (8.5-10.1); Chloride 108 mmol/L (98-107); Creatinine, Serum 1.72 mg/dL (0.70-1.30); EST Glomerular Filtration Rate 42 mL/min (>60); Est Glom Filt Rate - Afr Amer 51 mL/min (>60); Estimated Creatinine Clearance 41.85 ml/min; Globulin 4.3 g/dL (2.2-4.2); Glucose 185 mg/dL (74-106); Potassium 4.1 mmol/L (3.5-5.1); Protein, Total 6.8 g/dL (6.4-8.2); Sodium Level 138 mmol/L (136-145)
[2023-02-12] MEDS: Insulin Lispro 100 UNIT/ML INSULN.PEN SC ×3 (06:43→16:54)
[2023-02-12 07:15] LABS: Bedside Glucose 166 mg/dL (74-106)
--- NOTE | 2023-02-12 08:48 | PN.HOSP_ITS ---
Reason for Visit Reason for Visit: Diagnoses Sepsis, unspecified organism (02/11/23) Type 2 diabetes mellitus without complications (02/11/23) Tubulo-interstitial nephritis, not specified as acute or chronic (02/11/23) Acute kidney failure, unspecified (02/11/23) Other malaise (02/11/23) group home (current) use of insulin (02/11/23) Subjective Subjective Still with left flank pain but improved overall. Had some rigors overnight but overall feels much better. States that when he was having his rigors, he aggravated his muscle in his the right side of his neck. Objective Data Objective Data Vital Signs: Vital Signs Temp Pulse Resp BP Pulse Ox O2 Del Method O2 Flow Rate 37.9 C H 101 H 17 108/67 92 Room Air 2 02/12/23 08:20 02/12/23 08:20 02/12/23 08:20 02/12/23 08:20 02/12/23 08:20 02/12/23 08:20 02/11/23 20:10 Oxygen Flow Rate (L/min) 2 Oxygen Delivery Method Room Air Weight: 84.2 kg Body Mass Index (BMI) 26.6 Intake & Output: Intake and Output for Last 24 Hours 02/10/23 02/11/23 02/12/23 23:59 23:59 23:59 Intake Total 3670 / 3670 Output Total 1020 / 1020 350 / 350 Balance 2650 / 2650 -350 / -350 Lab / Micro Data Result Diagrams: 02/12/23 04:31 02/12/23 04:31 Labs: Laboratory Results - last 24 hr 02/11/23 11:28: POC Glucose 150 H 02/11/23 12:40: Lactic Acid 1.4 02/11/23 16:51: POC Glucose 158 H 02/11/23 21:29: POC Glucose 265 H 02/12/23 04:31: WBC 18.2 H, RBC 3.76 L, Hgb 11.9 L, Hct 37.2 L, MCV 98.9 H, MCH 31.6, MCHC 32.0, RDW Std Deviation 47.1 H, RDW Coeff of Sandro 13.1, Plt Count 278, MPV 9.4, Immature Gran % (Auto) 0.800, Neut % (Auto) 85.8 H, Lymph % (Auto) 5.0 L, [place] % (Auto) 8.0, Eos % (Auto) 0.2, Baso % (Auto) 0.2, Absolute Neuts (auto) 15.7 H, Absolute Lymphs (auto) 0.92, Nucleated RBC % 0 02/12/23 04:31: Sodium 138, Potassium 4.1, Chloride 108 H, Carbon Dioxide 24.0, Anion Gap 6, BUN 31 H, Creatinine 1.72 H, Estim Creat Clear Calc 41.85, Est GFR (MDRD) Af Amer 51 L, Est GFR (MDRD) Non-Af 42 L, BUN/Creatinine Ratio 18.0, Glucose 185 H, Calcium 8.3 L, Total Bilirubin 1.70 H, AST 29, ALT 33, Alkaline Phosphatase 131 H, Total Protein 6.8, Albumin 2.5 L, Globulin 4.3 H, Albumin/Globulin Ratio 0.6 L 02/12/23 06:42: POC Glucose 166 H Micro: Microbiology 02/11/23 07:46 Nasal Secretion SARS-CoV-2 & FLU Antigen (Rapid) - Final Rhythm Strip Rhythm Strip: Sinus Tach Rate: 122 Ectopy: None Physical Exam Const alert and no apparent distress HEENT head/scalp atraumatic and moist oral mucous membranes Neck Neck Narrative: Right trapezius spasm Resp normal respiratory effort, no retractions, no use of accessory muscles and clear to auscultation bilaterally Cardio regular rate, regular rhythm, S1 normal heart sound and S2 normal heart sound GI normal to inspection, nondistended, normoactive bowel sounds GI Narrative: Still with exquisite left CVA tenderness but not as profound as it was on the . Extremity normal to inspection Assessment & Plan Assessment/Plan (1) Sepsis: PLAN: Secondary to UTI/pyonephritis Received ceftriaxone in the emergency room and will continue Follow blood and urine cultures Currently hemodynamically stable and feel low risk for developing into septic shock at this time. (2) Pyelonephritis: PLAN: At the minimum, patient has urinary tract infection but with his left CVA tenderness, I am very concerned about pyelonephritis. Check ultrasound (done, but results still pending) (3) KALA (acute kidney injury): PLAN: Improving Secondary to decreased oral intake. Feel this is likely prerenal in etiology Patient received IV fluids emergency room and will given additional fluids as patient still does appear dehydrated. Ultrasound primarily to evaluate for pyelonephritis not for etiology of his acute kidney injury but will evaluate see if is any ureteral stones that may be contributing to this. 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 Hold metformin on account of acute kidney injury Check an A1c (6) Muscle spasm: PLAN: Patient's right trapezius muscle is very tense and tender. Patient stated that is aggravated when he was having his rigors. Patient did recently have sounds like an epidural in his neck but do not think that is any correlation to what he is doing with now. We will schedule cyclobenzaprine and see how he responds to that. PLAN: Plan Chronic conditions * Hypertension: We will continue with amlodipine. Hold lisinopril on account of acute kidney injury for now * Hyperlipidemia: Continue with statin VTE prophylaxis with enoxaparin Case discussed with the patient's who is at bedside. Charges/Coding Visit Charges Inpatient E&M: 25919 Subs Hosp L2
[2023-02-12] MEDS: oxyCODONE 5 MG Tablet PO (08:49)
[2023-02-12] MEDS: Glimepiride 2 MG Tablet PO (08:51)
[2023-02-12] MEDS: 0.9% Saline Lock 10 ML Syringe IV ×2 (08:52→10:44)
[2023-02-12 08:55] LABS: Hemoglobin A1c 9.3 % (3.8-5.6)
[2023-02-12] MEDS: Insulin Glargine-YFGN 100 UNIT/ML Pen 25 UNIT SC (10:35)
[2023-02-12] MEDS: Enoxaparin 40 MG/0.4 ML Syringe SC (10:37)
[2023-02-12] MEDS: Mirabegron 25 MG TAB.ER.24H PO (10:39)
[2023-02-12] MEDS: amLODIPine 5 MG Tablet PO (10:39)
[2023-02-12] MEDS: Ceftriaxone 1 GM/50 ML BAG IV (10:45)
--- NOTE | 2023-02-12 11:30 | CASEMGMT ---
RN NINO Face to Face with patient for initial transition planning/care coordination assessment. RN CM introduced self and role at [facility]. Patient lying in bed, alert and oriented, at bedside. Patient willing to participate in assessment and is able to answer all questions appropriately. Care providers, pharmacy, and demographics verified. Patient wishes to discharge home, denies need for home health at this time. Patient states he has no further needs or concerns at this time. CM to follow for discharge planning needs that may arise. PCP: Sami Specialists: lili Kern Preferred Pharmacy: [facility] Prescription Benefit: yes Living Will/HPOA: yes, Kristine Castro LNOK: , daughter, son Living Arrangements: Patient lives with in a single story condo with no steps to enter. Patient is independent at home. Transportation: self, DME/HHC: Patient has raised toilet, cane, and glucometer with supplies at home. No previous HHC or SNF. Disposition Plan: Patient to discharge home with family support and follow-up plans in place Mary Kate ALEGRIA, RN, CM
[2023-02-12 13:00] LABS: Bedside Glucose 195 mg/dL (74-106)
[2023-02-12] MEDS: cycloBENZAPRine HCl 10 MG Tablet PO (14:33)
[2023-02-12 17:20] LABS: Bedside Glucose 209 mg/dL (74-106)
[2023-02-12] MEDS: Gabapentin 100 MG Capsule 200 MG PO (20:53)
[2023-02-12] MEDS: Atorvastatin Calcium 40 MG Tablet PO (20:54)
[2023-02-13 01:31] LABS: Bedside Glucose 141 mg/dL (74-106)
[2023-02-13 03:50] VITALS: BP 123/66; PULSE 91; RESP 18; TEMP 36.1; O2SAT 92
[2023-02-13 05:59] LABS: Absolute Lymphocyte Count 1.09 X10^3/uL (0.83-4.51); Absolute Neutrophil Count 13.7 X10^3/uL (2.0-7.7); Basophil# 0.05 X10^3/uL; Basophil% 0.3 % (0-1); Eosinophil# 0.12 X10^3/uL; Eosinophils% 0.7 % (0-5); Hematocrit 35.8 % (40-54); Hemoglobin 11.4 g/dL (13.0-16.5); Lymphocyte # 1.09 X10^3/ul (0.83-4.51); Lymphocyte % 6.6 % (19-41); Mean Corp Hgb Conc 31.8 g/dL (32-36); Mean Corpuscular Hgb 31.6 pg (27.0-32.0); Mean Corpuscular Volume 99.2 fL (80-94); Mean Platelet Vol. 9.6 fl (6.2-12.0); Monocyte# 1.42 X10^3/uL; Monocyte% 8.6 % (0-10); NRBC Flagged by Analyzer 0 % (0-5); Neutrophil % 83.1 % (47-70); Platelet Count 269 K/mm3 (150-450); RBC Distribution Width CV 13.2 % (11.6-14.6); RBC Distribution Width SD 47.7 fl (35.1-43.9); Red Blood Count 3.61 M/mm3 (4.6-6.2); White Blood Count 16.5 K/mm3 (4.4-11.0)
[2023-02-13 06:00] VITALS: BP 123/66; PULSE 91; RESP 18; TEMP 36.1; O2SAT 92
[2023-02-13] MEDS: Acetaminophen 500 MG Tablet 1000 MG PO ×2 (06:27→14:30)
[2023-02-13 07:00] LABS: Anion Gap 7 (5-15); BUN 33 mg/dL (7-18); BUN/Creat Ratio 21.4 RATIO (10-20); Calcium,Total 8.5 mg/dL (8.5-10.1); Chloride 109 mmol/L (98-107); Creatinine, Serum 1.54 mg/dL (0.70-1.30); EST Glomerular Filtration Rate 48 mL/min (>60); Est Glom Filt Rate - Afr Amer 58 mL/min (>60); Estimated Creatinine Clearance 46.74 ml/min; Glucose 108 mg/dL (74-106); Sodium Level 139 mmol/L (136-145)
[2023-02-13 07:10] LABS: Bedside Glucose 103 mg/dL (74-106)
--- NOTE | 2023-02-13 08:13 | PCM.PN.HOSP ---
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 Still with left flank pain, but improving. Objective Data Objective Data Vital Signs: Vital Signs Temp Pulse Resp BP Pulse Ox O2 Del Method O2 Flow Rate 36.1 C L 91 18 123/66 H 92 Room Air 2 02/13/23 06:00 02/13/23 06:00 02/13/23 06:00 02/13/23 06:00 02/13/23 06:00 02/13/23 06:00 02/11/23 20:10 Oxygen Flow Rate (L/min) 2 Oxygen Delivery Method Room Air Weight: 84.2 kg Body Mass Index (BMI) 26.6 Intake & Output: Intake and Output for Last 24 Hours 02/11/23 02/12/23 02/13/23 23:59 23:59 23:59 Intake Total 3670 / 3670 660 / 660 Output Total 1020 / 1020 1050 / 1050 300 / 300 Balance 2650 / 2650 -390 / -390 -300 / -300 Lab / Micro Data Result Diagrams: 02/13/23 05:12 02/13/23 05:12 Labs: Laboratory Results - last 24 hr 02/12/23 04:31: Hemoglobin A1c 9.3 H 02/12/23 12:15: POC Glucose 195 H 02/12/23 16:50: POC Glucose 209 H 02/12/23 21:28: POC Glucose 141 H 02/13/23 05:12: WBC 16.5 H, RBC 3.61 L, Hgb 11.4 L, Hct 35.8 L, MCV 99.2 H, MCH 31.6, MCHC 31.8 L, RDW Std Deviation 47.7 H, RDW Coeff of Sandro 13.2, Plt Count 269, MPV 9.6, Immature Gran % (Auto) 0.700, Neut % (Auto) 83.1 H, Lymph % (Auto) 6.6 L, [place] % (Auto) 8.6, Eos % (Auto) 0.7, Baso % (Auto) 0.3, Absolute Neuts (auto) 13.7 H, Absolute Lymphs (auto) 1.09, Nucleated RBC % 0 02/13/23 05:12: Sodium 139, Potassium 4.0, Chloride 109 H, Carbon Dioxide 23.0, Anion Gap 7, BUN 33 H, Creatinine 1.54 H, Estim Creat Clear Calc 46.74, Est GFR (MDRD) Af Amer 58 L, Est GFR (MDRD) Non-Af 48 L, BUN/Creatinine Ratio 21.4 H, Glucose 108 H, Calcium 8.5 02/13/23 06:29: POC Glucose 103 Micro: Microbiology 02/11/23 07:50 Urine, Clean Catch Urine Culture - Preliminary 02/11/23 07:46 Nasal Secretion SARS-CoV-2 & FLU Antigen (Rapid) - Final Radiography Diagnostic Testing: Radiology Impression Renal Ultrasound 02/11/23 10:14 IMPRESSION: Small cyst in the lower pole of the right kidney. Mild degree of left hydronephrosis. Electronically Signed: Neo Cody MD at 15:23 EDT , Rhythm Strip Rhythm Strip: Sinus Tach Rate: 122 Ectopy: None Physical Exam Const alert and no apparent distress HEENT head/scalp atraumatic Resp normal respiratory effort, no retractions and no use of accessory muscles Cardio regular rate, regular rhythm, S1 normal heart sound and S2 normal heart sound GI normal to inspection, nondistended, normoactive bowel sounds, soft to palpation, non-tender and non-distended Assessment & Plan Assessment/Plan (1) Sepsis: PLAN: Secondary to UTI/pyonephritis Received ceftriaxone in the emergency room and will continue Follow up blood and urine cultures Currently hemodynamically stable and feel low risk for developing into septic shock at this time. (2) Pyelonephritis: PLAN: At the minimum, patient has urinary tract infection but with his left CVA tenderness, I am very concerned about pyelonephritis. ultrasound showed small cyst in lower pole of right kidney. Mild left hydronephrosis (3) KALA (acute kidney injury): PLAN: Improving Secondary to decreased oral intake. Feel this is likely prerenal in etiology Patient received IV fluids emergency room and will given additional fluids as patient still does appear dehydrated. Ultrasound primarily to evaluate for pyelonephritis not for etiology of his acute kidney injury but will evaluate see if is any ureteral stones that may be contributing to this. 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 Hold metformin on account of acute kidney injury A1c 9.3 Fair control (6) Muscle spasm: PLAN: Patient's right trapezius muscle is very tense and tender. Patient stated that is aggravated when he was having his rigors. Patient did recently have sounds like an epidural in his neck but do not think that is any correlation to what he is doing with now. Became very groggy after cyclobenzaprine, therefore it was discontinued. PLAN: Plan Chronic conditions Hypertension: We will continue with amlodipine. Hold lisinopril on account of acute kidney injury for now Hyperlipidemia: Continue with statin VTE prophylaxis with enoxaparin Case discussed with the patient's who is at bedside. Charges/Coding Visit Charges Inpatient E&M: 71808 Subs Hosp L2
[2023-02-13] MEDS: Glimepiride 2 MG Tablet PO (08:38)
[2023-02-13 11:07] VITALS: BP 134/76; PULSE 105; RESP 16; TEMP 37.1; O2SAT 95
[2023-02-13] MEDS: Mirabegron 25 MG TAB.ER.24H PO (11:09)
[2023-02-13] MEDS: Enoxaparin 40 MG/0.4 ML Syringe SC (11:09)
[2023-02-13] MEDS: amLODIPine 5 MG Tablet PO (11:10)
[2023-02-13] MEDS: 0.9% Saline Lock 10 ML Syringe IV (11:10)
[2023-02-13] MEDS: Ceftriaxone 1 GM/50 ML BAG IV (11:10)
[2023-02-13] MEDS: Insulin Glargine-YFGN 100 UNIT/ML Pen 25 UNIT SC (12:09)
[2023-02-13 12:30] LABS: Bedside Glucose 133 mg/dL (74-106)
--- NOTE | 2023-02-13 13:30 | CASEMGMT ---
Addendum entered by Mary Kate Storm 02/13/23 14:37: ISABELLA ONEILL updated by [facility] that they are able to accept the patient with a start of care for 02/18/23. ISABELLA ONEILL delivered walker to patient's room and updated regarding HHC acceptance and start of care. Patient had no further questions or concerns at this time. Original Note: ISABELLA ONEILL updated by therapy that patient would benefit from FWW and HHC at discharge. ISABELLA ONEILL in to discuss HHC with patient. Patient agreeable and has no preferences on HHC. Patient provided verbal list and agreeable to [facility]. ISABELLA ONEILL made referal to [facility], awaiting acceptance. ISABELLA ONEILL obtained script for FWW, patient agreeable to [facility]. ISABELLA ONEILL sent referral to [facility] and arranged for delivery to room.
--- NOTE | 2023-02-13 14:10 | DCINST_ITS ---
Discharge Instructions Diet Discharge Diet: No restrictions Dressing / Incision Call your doctor if you observe: Fever of 101 or Higher and - (worsening abdominal pain. painful urination. ) Follow Up Care Test Results: Test results from this visit will be discussed in further detail at your follow- up appointment, if applicable. Discharge Plan Admission Admit Date/Time: 02/11/23 09:59 Primary Reason for Your Visit: sepsis. pyelonephritis. Attending Provider: Richard Real Primary Care Provider: Jess Gallardo Discharge Orders/Prescriptions Prescriptions: New acetaminophen 500 mg Tablet 1,000 mg PO Q8 Qty: 0 0RF oxycodone 5 mg Tablet 5 mg PO Q6H PRN (Reason: pain) 3 Days Qty: 12 0RF levofloxacin 500 mg tablet 500 mg PO DAILY Qty: 7 0RF Continued Levemir FlexTouch U-100 Insuln 100 UNITS/ML insulin pen 25 units subcut DAILY Label Comments: DIABETES cyclobenzaprine 10 MG tablet 10 mg PO DAILY PRN PRN (Reason: Muscle Spasm) glimepiride 2 MG tablet 2 mg PO DAILY baclofen 10 mg tablet 10 mg PO DAILY PRN PRN (Reason: Muscle Spasm) atorvastatin 40 mg tablet 40 mg PO QHS amlodipine 5 mg tablet 5 mg PO DAILY gabapentin 100 mg capsule 200 mg PO QHS cholecalciferol (vitamin D3) 1,250 mcg (50,000 unit) Capsule 1,250 mcg PO QWEEK Myrbetriq 25 mg Tablet Extended Release 24 Hr 25 mg PO DAILY Held metformin [Glucophage] 1,000 MG tablet 1,000 mg PO BID Hold Instructions: Resume on 02/16/23. Label Comments: DIABETES meloxicam 15 mg tablet 15 mg PO DAILY Hold Instructions: Resume on 02/16/23. Discontinued lisinopril 20 MG tablet 20 mg PO DAILY Label Comments: HEART/BLOOD PRESSURE Referrals / Follow Up: Jess Gallardo MD [Primary Care Provider] - Within 2 Weeks Disposition Disposition (needs filled in before D/C Order can be placed): Home, Self Care
--- NOTE | 2023-02-13 14:16 | DS.PCM_ITS ---
Providers Date of Admission: 02/11/23 Primary Care Physician: Dr. Jess Gallardo MD Reason For Visit: SEPSIS / UTI Diagnosis Discharge Diagnosis (1) Sepsis: Status: Acute Code(s): A41.9 - Sepsis, unspecified organism Plan: Secondary to UTI/pyonephritis Received ceftriaxone in the emergency room and will continue Follow up blood and urine cultures Currently hemodynamically stable and feel low risk for developing into septic shock at this time. (2) Pyelonephritis: Status: Acute Code(s): N12 - Tubulo-interstitial nephritis, not specified as acute or chronic Plan: At the minimum, patient has urinary tract infection but with his left CVA tenderness, I am very concerned about pyelonephritis. ultrasound showed small cyst in lower pole of right kidney. Mild left hydronephrosis (3) KALA (acute kidney injury): Status: Acute Code(s): N17.9 - Acute kidney failure, unspecified Plan: Improving Secondary to decreased oral intake. Feel this is likely prerenal in etiology Patient received IV fluids emergency room and will given additional fluids as patient still does appear dehydrated. Ultrasound primarily to evaluate for pyelonephritis not for etiology of his acute kidney injury but will evaluate see if is any ureteral stones that may be contributing to this. 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 Hold metformin on account of acute kidney injury A1c 9.3 Fair control (6) Muscle spasm: Status: Acute Code(s): M62.838 - Other muscle spasm Plan: Patient's right trapezius muscle is very tense and tender. Patient stated that is aggravated when he was having his rigors. Patient did recently have sounds like an epidural in his neck but do not think that is any correlation to what he is doing with now. Became very groggy after cyclobenzaprine, therefore it was discontinued. Plan Chronic conditions * Hypertension: We will continue with amlodipine. Hold lisinopril on account of acute kidney injury for now * Hyperlipidemia: Continue with statin VTE prophylaxis with enoxaparin Case discussed with the patient's who is at bedside. Medications at Discharge Home Medications insulin detemir U-100 100 unit/mL (3 mL) subcutaneous pen (Levemir FlexTouch U- 100 Insulin) 25 units subcut DAILY 07/20/14 metformin 1,000 mg tablet (Glucophage) 1,000 mg PO BID 07/20/14 baclofen 10 mg tablet 10 mg PO DAILY PRN PRN Muscle Spasm 05/17/20 cyclobenzaprine 10 mg tablet 10 mg PO DAILY PRN PRN Muscle Spasm 05/17/20 glimepiride 2 mg tablet 2 mg PO DAILY 05/17/20 amlodipine 5 mg tablet 5 mg PO DAILY 02/11/23 atorvastatin 40 mg tablet 40 mg PO QHS 02/11/23 cholecalciferol (vitamin D3) 1,250 mcg (50,000 unit) capsule 1,250 mcg PO QWEEK 02/11/23 gabapentin 100 mg capsule 200 mg PO QHS 02/11/23 meloxicam 15 mg tablet 15 mg PO DAILY 02/11/23 mirabegron 25 mg tablet,extended release 24 hr (Myrbetriq) 25 mg PO DAILY 02/11/23 acetaminophen 500 mg tablet 1,000 mg PO Q8 #0 tabs 02/13/23 levofloxacin 500 mg tablet 500 mg PO DAILY #7 tabs 02/13/23 oxycodone 5 mg tablet 5 mg PO Q6H PRN pain 3 days #12 tabs 02/13/23 Hospital Course Procedures None Summary of Care Provided Minutes Spent on Discharge: 32 Hospital Course: This is a 67-year-old male presents with sepsis. Patient with positive urinalysis and clinical suspicion for left-sided pyelonephritis. Patient was started on ceftriaxone and received IV fluids. Patient's clinical condition overall improved. Patient had an ultrasound that showed some mild left-sided hydronephrosis but no mention of any stone. Urinalysis was positive. Urine culture showed mixed gram-positive but not definitive etiology. Given the clinical scenario, improvement with antibiotics this is felt to be acute sepsis due to pyelonephritis. Patient will be discharged to complete a course of levofloxacin. Patient also is debilitated due to his illness. Patient will require walker upon discharge. Patient still has flank pain which is improved but still very tender. Patient on a short course of oxycodone to help him with his pain. Weight / BMI Weight Weight: 84.2 kg Body Mass Index (BMI) 26.6 ABG / Lab / Microbiology Data Result Diagrams: 02/13/23 05:12 02/13/23 05:12 Laboratory: Laboratory Results - last 24 hr 02/12/23 16:50: POC Glucose 209 H 02/12/23 21:28: POC Glucose 141 H 02/13/23 05:12: WBC 16.5 H, RBC 3.61 L, Hgb 11.4 L, Hct 35.8 L, MCV 99.2 H, MCH 31.6, MCHC 31.8 L, RDW Std Deviation 47.7 H, RDW Coeff of Sandro 13.2, Plt Count 269, MPV 9.6, Immature Gran % (Auto) 0.700, Neut % (Auto) 83.1 H, Lymph % (Auto) 6.6 L, Leon % (Auto) 8.6, Eos % (Auto) 0.7, Baso % (Auto) 0.3, Absolute Neuts (auto) 13.7 H, Absolute Lymphs (auto) 1.09, Nucleated RBC % 0 02/13/23 05:12: Sodium 139, Potassium 4.0, Chloride 109 H, Carbon Dioxide 23.0, Anion Gap 7, BUN 33 H, Creatinine 1.54 H, Estim Creat Clear Calc 46.74, Est GFR (MDRD) Af Amer 58 L, Est GFR (MDRD) Non-Af 48 L, BUN/Creatinine Ratio 21.4 H, Glucose 108 H, Calcium 8.5 02/13/23 06:29: POC Glucose 103 02/13/23 12:07: POC Glucose 133 H Microbiology: Microbiology 02/11/23 08:03 Blood Culture (Wb) - Anticubital Left Blood Culture - Prel iminary No growth in 48 hours. 02/11/23 07:46 Blood Culture (Wb) - Anticubital Left Blood Culture - Preliminary No growth in 48 hours. 02/11/23 07:50 Urine, Clean Catch Urine Culture - Final Mixed Gram Positive Organisms 02/11/23 07:46 Nasal Secretion SARS-CoV-2 & FLU Antigen (Rapid) - Final Radiography Diagnostic Testing: Radiology Impression Renal Ultrasound 02/11/23 10:14 IMPRESSION: Small cyst in the lower pole of the right kidney. Mild degree of left hydronephrosis. Electronically Signed: Neo Cody MD at 15:23 EDT , D/C Instructions Discharge Diet: No restrictions Call your doctor if you observe: Fever of 101 or Higher and - (worsening abdominal pain. painful urination. ) Meaningful Use Info Meaningful Use Diagnoses (Choose all that apply): None applicable Discharge Plan Admission Admit Date/Time: 02/11/23 09:59 Primary Reason for Your Visit: sepsis. pyelonephritis. Attending Provider: Richard Real Primary Care Provider: Jess Gallardo Discharge Orders/Prescriptions Prescriptions: New acetaminophen 500 mg Tablet 1,000 mg PO Q8 Qty: 0 0RF oxycodone 5 mg Tablet 5 mg PO Q6H PRN (Reason: pain) 3 Days Qty: 12 0RF levofloxacin 500 mg tablet 500 mg PO DAILY Qty: 7 0RF Continued Levemir FlexTouch U-100 Insuln 100 UNITS/ML insulin pen 25 units subcut DAILY Label Comments: DIABETES cyclobenzaprine 10 MG tablet 10 mg PO DAILY PRN PRN (Reason: Muscle Spasm) glimepiride 2 MG tablet 2 mg PO DAILY baclofen 10 mg tablet 10 mg PO DAILY PRN PRN (Reason: Muscle Spasm) atorvastatin 40 mg tablet 40 mg PO QHS amlodipine 5 mg tablet 5 mg PO DAILY gabapentin 100 mg capsule 200 mg PO QHS cholecalciferol (vitamin D3) 1,250 mcg (50,000 unit) Capsule 1,250 mcg PO QWEEK Myrbetriq 25 mg Tablet Extended Release 24 Hr 25 mg PO DAILY Held metformin [Glucophage] 1,000 MG tablet 1,000 mg PO BID Hold Instructions: Resume on 02/16/23. Label Comments: DIABETES meloxicam 15 mg tablet 15 mg PO DAILY Hold Instructions: Resume on 02/16/23. Discontinued lisinopril 20 MG tablet 20 mg PO DAILY Label Comments: HEART/BLOOD PRESSURE Referrals / Follow Up: Jess Gallardo MD [Primary Care Provider] - Within 2 Weeks Disposition Disposition (needs filled in before D/C Order can be placed): Home, Self Care Charges/Coding Visit Charges Inpatient E&M: 84788 Disch Hosp >30min
[2023-02-13] MEDS: cycloBENZAPRine HCl 10 MG Tablet PO (14:30)
== END 2023-02-13 15:13 | disposition home or self-care (01) | DRG 690 ==
LOC: ED 08:00 → PCU 09:39
PROVIDERS: Emergency Provider Emergency Medicine; PCP Family Medicine
DX: N13.6 Pyonephrosis (principal); N17.9 Acute kidney failure, unspecified; E11.8 Type 2 diabetes mellitus with unspecified complications; E78.5 Hyperlipidemia, unspecified; G89.29 Other chronic pain; B96.89 Other specified bacterial agents as the cause of diseases classified elsewhere; Z79.4 Long term (current) use of insulin; I10 Essential (primary) hypertension; M62.838 Other muscle spasm; R53.81 Other malaise; R53.1 Weakness; N28.1 Cyst of kidney, acquired; N16 Renal tubulo-interstitial disorders in diseases classified elsewhere
CPT/HCPCS: 36415; 71045; 76770; 80048; 80053; 81001; 82962; 83036; 83605; 85025; 85610; 85730; 87040; 87086; 87088; 87428; 93005; 97162; 97166; 99285; J7030; A4216; J2405

== ENCOUNTER → 2023-08-13 | Outpatient (CLI) | payer MEDICARE, SELFPAY ==
--- NOTE | 2023-08-13 14:53 | BD_ITS ---
STUDY: DUAL ENERGY X-RAY ABSORPTIOMETRY / DXA REASON FOR EXAM: Male, 68 years old. M810 TECHNIQUE: Bone Mineral Density (BMD) measurements of lumbar spine and bilateral hips were obtained. COMPARISON: None. FINDINGS: Lumbar Spine (L1-L4): g/cm2 (0.985) / T-score (-0.6) / Z-score (0.3) Findings are suggestive of normal bone density with a low fracture risk. Left Femur Total: g/cm2 (0.798) / T-score (-1.6) / Z-score (-0.9) Left Femoral Neck: g/cm2 (0.682) / T-score (-1.8) / Z-score (-0.6) Right Femur Total: g/cm2 (0.837) / T-score (-1.3) / Z-score (-0.6) Right Femoral Neck: g/cm2 (0.728) / T-score (-1.5) / Z-score (-0.3) BD/Dexa Bone Density Study IMPRESSION: The patient is considered osteopenic as outlined below according to World Stephon Organization (WHO) criteria with a moderate fracture risk. Reference Information: The T-score is the number of standard deviations above or below the standard which is normal for young adults at their peak bone mineral density. The World Health Organization (WHO) interprets the T-scores as follows: Above -1 Normal bone density Between -1 and -2.5 Osteopenia Equal to / or below -2.5 Osteoporosis As a practical clinical guideline, osteopenia may be graded as follows: Mild -1 through -1.5 Moderate -1.6 through -2.0 Severe -2.1 through -2.4 The Z-score is the number of standard deviations above or below age-matched controls. A Z-score of less than -1.5 would be considered abnormal. References: 1. NIH Osteoporosis and Related Bone Diseases www osteo.org 2. International Society for Clinical Densitometry www iscd.org 3. National Osteoporosis Foundation www nof.org Electronically Signed: Neo Cody MD at 14:20 EDT ,
== END | disposition home or self-care (01) ==
LOC: OPBD 14:51
PROVIDERS: PCP Family Medicine; Referring Provider Family Medicine; Visit Provider Family Medicine
DX: S92.252A Displaced fracture of navicular [scaphoid] of left foot, initial encounter for closed fracture (principal); M85.872 Other specified disorders of bone density and structure, left ankle and foot
CPT/HCPCS: 77080

== ENCOUNTER → 2024-03-11 | Outpatient (CLI) | payer MEDICARE, SELFPAY ==
[2024-03-11 12:17] LABS: Absolute Lymphocyte Count 1.78 X10^3/uL (0.83-4.51); Basophil# 0.07 X10^3/uL; Eosinophil# 0.46 X10^3/uL; Eosinophils% 6.7 % (0-5); Hematocrit 44.2 % (40-54); Hemoglobin 14.7 g/dL (13.0-16.5); Lymphocyte # 1.78 X10^3/ul (0.83-4.51); Lymphocyte % 26.1 % (19-41); Mean Corp Hgb Conc 33.3 g/dL (32-36); Mean Corpuscular Hgb 31.9 pg (27.0-32.0); Mean Corpuscular Volume 95.9 fL (80-94); Mean Platelet Vol. 9.4 fl (6.2-12.0); Monocyte# 0.53 X10^3/uL; Monocyte% 7.8 % (0-10); NRBC Flagged by Analyzer 0 % (0-5); Neutrophil # 3.95 X10^3/uL (2.7-7.7); Platelet Count 329 K/mm3 (150-450); RBC Distribution Width CV 12.3 % (11.6-14.6); RBC Distribution Width SD 43.5 fl (35.1-43.9); Red Blood Count 4.61 M/mm3 (4.6-6.2); White Blood Count 6.8 K/mm3 (4.4-11.0)
[2024-03-11 13:38] LABS: ALB/GLOB Ratio 0.8 RATIO (0.9-2.4); AST(SGOT) 21 U/L (15-37); Alanine Aminotransfer ALT/SGPT 27 U/L (16-61); Albumin, Serum 3.3 g/dL (3.2-5.0); Alkaline Phosphatase 105 U/L (45-117); Anion Gap 5 (5-15); BUN 26 mg/dL (7-18); BUN/Creat Ratio 13.5 RATIO (10-20); Calcium,Total 9.4 mg/dL (8.5-10.1); Chloride 106 mmol/L (98-107); Cholesterol 305 mg/dL (200); Creatinine, Serum 1.93 mg/dL (0.70-1.30); EST Glomerular Filtration Rate 37 mL/min (>60); Est Glom Filt Rate - Afr Amer 44 mL/min (>60); Glucose 162 mg/dL (74-106); High Density Lipoprotein 36 mg/dL; PSA,Total - Annual Screen 1.99 ng/mL (0.00-4.00); Potassium 3.8 mmol/L (3.5-5.1); Protein, Total 7.3 g/dL (6.4-8.2); Sodium Level 140 mmol/L (136-145); Triglycerides 522 mg/dL
== END | disposition home or self-care (01) ==
LOC: MTLAB 11:10
PROVIDERS: PCP Family Medicine; Referring Provider Family Medicine; Visit Provider Family Medicine
DX: E11.65 Type 2 diabetes mellitus with hyperglycemia (principal); E11.69 Type 2 diabetes mellitus with other specified complication; I10 Essential (primary) hypertension; E78.5 Hyperlipidemia, unspecified; Z12.5 Encounter for screening for malignant neoplasm of prostate
CPT/HCPCS: 36415; 80053; 80061; 84153; 85025; G0103

== ENCOUNTER → 2024-03-14 | Outpatient (CLI) | payer MEDICARE, SELFPAY ==
[2024-03-14 14:08] LABS: Microalbumin:Creatinine Ratio 300.7 mg/g CRE (<30 mg/g CRE)
== END | disposition home or self-care (01) ==
PROVIDERS: PCP Family Medicine; Referring Provider Family Medicine; Visit Provider Family Medicine
DX: E11.65 Type 2 diabetes mellitus with hyperglycemia (principal); E11.69 Type 2 diabetes mellitus with other specified complication; I10 Essential (primary) hypertension; E78.5 Hyperlipidemia, unspecified; Z12.5 Encounter for screening for malignant neoplasm of prostate
CPT/HCPCS: 82043; 82570

== ENCOUNTER → 2024-06-17 | Outpatient (CLI) | payer MEDICARE, SELFPAY ==
--- NOTE | 2024-06-17 11:45 | RAD_ITS ---
STUDY: X-RAY - LEFT SHOULDER REASON FOR EXAM: Male, 69 years old. PAIN WITH INTERNAL ROTATION TECHNIQUE: 4 views of the left shoulder. COMPARISON: None. FINDINGS: There is mild glenohumeral arthrosis. There is hypertrophic acromioclavicular arthrosis. Normal acromion. Intact humeral head and visualized proximal humerus. The soft tissue structures are unremarkable. There is no demonstrated fracture. Normal visualized pulmonary apex. RAD/Shoulder min 2 Views IMPRESSION: Mild glenohumeral arthrosis. Hypertrophic acromioclavicular arthrosis. Electronically Signed: Mikal Chan MD at 12:17 EDT ,
== END | disposition home or self-care (01) ==
LOC: MTRAD 11:43
PROVIDERS: PCP Family Medicine; Referring Provider Family Medicine; Visit Provider Family Medicine
DX: M67.912 Unspecified disorder of synovium and tendon, left shoulder (principal)
CPT/HCPCS: 73030

== ENCOUNTER 2024-06-24 13:12 | Outpatient (RCR) | payer MEDICARE, SELFPAY ==
--- NOTE | 2024-06-24 14:20 | HP.PTEVAL_ITS ---
Patient's Visit Information Visit Information Visit Information: MINH WALTERS is a 69 year old M referred to Physical Therapy by Dr. Jess Gallardo MD with a diagnosis of L RC pain, weakness. Date of Evaluation: 06/24/24 Physical Therapist: EVELIO Oseguera Visit Plan Frequency: 2x /Week Duration: 2 Months Plan: 2X/ week for 8 weeks for L shoulder AROM/PROM and strengthening of RC and scapular strength with HEP HEP: Supine wand flexion Subjective Subjective: Pt has pain in his L shoulder and pain will go down the arm to the fingers and up towards the neck. The pain is in the anterior shoulder. He dislocated in years ago and since then he can make it move out of the socket leaning wrong or throwing something. The Dr did X-rays and shows arthritis. No MRI. He is L handed. She can sleep on the L shoulder if his arm is down by his side. 99% of the time he sleeps on his R side. It might wake him up if he moves too much. He gets N&T when really acted up. He has neck pain and does get shots in his neck. Pt got a shot in his arm yesterday and it has been really good pain loredo since the shot. Pain L shoulder pain: Pain Intensity (Out of 10): 0 Pain Intensity Range: 10 Objective Objective: L handed R 45# and 50# Bicep reflex 1+/3 B AROM: R shoulder Flexion approx 165 degrees and L 85 degrees R shoulder ABD 170 and L 87 R shoulder ER 41 and L 12 R shoulder IR T8 and L L1 MMT R shoulder flex 7.7 and L 3.9 R shoulder ABD 6.4 and L 3.4 R shoulder ER 5.6 and L 1.1 R shoulder IR 10.6 and l 6.5 L shoulder PROM able to get to approx 160 degrees elevation with no pain Pt reports that his L arm does not work right....for example he was laying on his back with his L arm out to the side and he asked the therapist to lift his arm up for him. Also when doing the supine wand flexion he was shaking horribly but able to do and it and it got more smooth the more he did. Balance/Special Test Scores Quick DASH Score: 68.1800 Goals Goal 1:: I HEP Goal Time Frame: 6-8 Weeks Goal 2:: Increase L shoulder AROM (at the time of the eval: AROM: R shoulder Flexion approx 165 degrees and L 85 degrees R shoulder ABD 170 and L 87 R shoulder ER 41 and L 12 R shoulder IR T8 and L L1). Goal Time Frame: 6-8 Weeks Goal 3:: Increase L shoulder strength (at the time of the eval: R shoulder flex 7.7 and L 3.9 R shoulder ABD 6.4 and L 3.4 R shoulder ER 5.6 and L 1.1 R shoulder IR 10.6 and l 6.5). 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 Goal Time Frame: 6-8 Weeks Rehabilitation Potential Rehabilitation Potential: Good Anticipated Interventions Patient/Client Instruction: Educate patient on: Condition and Plan of Care For the Purpose of:: To decrease pain, To increase ROM, To improve nutrient delivery to tissue, To improve muscle performance and motor function, To improve ability to perform ADL's, To increase tolerance to activity/condition/position, To improve performance and independence with ADL's, To decrease level of supervision to perform tasks, To improve ability of physical actions for home/community/work/leisure, To improve health of tissue, To decrease soft tissue restriction and To increase flexibility/ROM Therapeutic Exercise to Include: Strength training, Postural training, Flexibilty training, Neuromotor development, Passive ROM, Active ROM and Scapular Strength/Stabilization For the Purpose of:: To decrease pain, To increase ROM, To improve nutrient delivery to tissue, To improve muscle performance and motor function, To improve ability to perform ADL's, To improve performance and independence with ADL's, To decrease level of supervision to perform tasks, To improve ability of physical actions for home/community/work/leisure, To decrease soft tissue restriction and To increase flexibility/ROM Manual Therapy Techniques to Include: Passive ROM For the Purpose of:: To increase ROM, To improve nutrient delivery to tissue, To improve muscle performance and motor function, To increase tolerance to activity/condition/position, To improve health of tissue, To decrease soft t issue restriction and To increase flexibility/ROM Text: Thank you for the opportunity to evaluate your patient. For Medicare and Medicare HMO plans, please review the plan of care and approve it. It will need to be FAXED BACK to us at [phone] for Medicare purposes. For Medicare only, by signing this I certify the plan of care. Please let me know if there are questions or concerns regarding this plan of care. Physician Signature: Date:
--- NOTE | 2024-06-28 09:26 | HP.PTDCSUM ---
Discharge Summary D/C summary: It has been my pleasure to treat MINH WALTERS referred by Dr. Jess Gallardo MD, with the diagnosis of L RC pain, weakness for a total of 1 visit(s). Discharge Date: Please see the following information for a summary of their discharge status. Pain L shoulder pain: Pain Intensity (Out of 10): 0 Goals Goal 1:: I HEP Goal 2:: Increase L shoulder AROM (at the time of the eval: AROM: R shoulder Flexion approx 165 degrees and L 85 degrees R shoulder ABD 170 and L 87 R shoulder ER 41 and L 12 R shoulder IR T8 and L L1). Goal 3:: Increase L shoulder strength (at the time of the eval: R shoulder flex 7.7 and L 3.9 R shoulder ABD 6.4 and L 3.4 R shoulder ER 5.6 and L 1.1 R shoulder IR 10.6 and l 6.5). Goal 4:: Be able to picking tech his plate with his L hand with ease Plan Plan: 2X/ week for 8 weeks for L shoulder AROM/PROM and strengthening of RC and scapular strength with HEP HEP: Supine wand flexion D/C Information d/c sentence: If there are questions or concerns regarding this patient's physical therapy, please feel free to call me at [phone]. Thank you for the referral of this patient. Sincerely, Kenyetta Guzman, MPT Balance/Gait/Functional tests Balance/Special Test Scores Quick DASH Score: [phone]
== END 2024-06-24 19:00 | disposition home or self-care (01) ==
LOC: PT 13:12
PROVIDERS: PCP Family Medicine; Referring Provider Family Medicine; Visit Provider Family Medicine
DX: M67.912 Unspecified disorder of synovium and tendon, left shoulder (principal)
CPT/HCPCS: 97161

== ENCOUNTER 2024-06-26 12:50 | Inpatient (IN) | payer MEDICARE, SELFPAY ==
[2024-06-26] VITALS (10 sets, daily range): BP systolic 114–153; BP diastolic 49–108; PULSE 100–113; RESP 13–25; TEMP 35.8–36.6; O2SAT 92–100; BMI 28.7; BMI 29.7
[2024-06-26] MEDS: TICAGRELOR 90 MG TABLET 180 MG PO (12:51)
[2024-06-26] MEDS: Heparin Injection (Vial) 5,000 UNIT/ML VIAL 4000 UNIT IV (12:53)
[2024-06-26] MEDS: Ondansetron 4 MG/2 ML Vial IV (12:55)
--- NOTE | 2024-06-26 13:00 | EKG12_ITS ---
Test Reason : CP Blood Pressure : / mmHG Vent. Rate : 116 BPM Atrial Rate : 116 BPM P-R Int : 134 ms QRS Dur : 082 ms QT Int : 332 ms P-R-T Axes : 084 -08 104 degrees QTc Int : 461 ms Critical Test Result: STEMI Sinus tachycardia with Fusion complexes Inferior-posterior infarct , possibly acute ST & T wave abnormality, consider lateral ischemia Confirmed by JORGE BRADLEY, ADARSH ([id number]), makeup editor BERTHA ONTIVEROS ([id number]) on 06/27/2024 9:46:43 AM Referred By: Madeline Maldonado Confirmed By:ADARSH PATEL MD
--- NOTE | 2024-06-26 13:01 | ED.VIS.CHEST ---
HPI History of Present Illness Chief Complaint: Chest Pain Informant: patient and EMS Narrative Narrative: Patient 69-year-old male with history of diabetes mellitus, hypertension and hyperlipidemia presenting presenting with chest pain. Per EMS reports patient was walking in the garage when he passed out. Family did not feel a pulse and started CPR. 911 was called. Patient was conscious when EMS arrived. EMS obtained an EKG which did show STEMI. Patient was given aspirin and route. Patient is complaining of left-sided chest pain, more severe left-sided shoulder pain, sweating, feeling cold and nauseous. He did not realize he was having chest pain until specifically aspect of chest pain. States he felt okay when he woke up this morning. Notes that 2 days ago he did have an injection because he has been having episodes of left shoulder pain. He states it was a steroid injection. This was performed by his primary care doctor. Denies any known cardiac history. Disease never had a cardiac catheterization. No other complaints or concerns at this time. [facility] Medical History Muscle spasm History of diabetes mellitus HTN (hypertension) Dyslipidemia DM2 (diabetes mellitus, type 2) Home Medications ?Medication ?Instructions ?Recorded ?Last Taken ?Type insulin detemir U-100 100 unit/mL 25 units subcut DAILY diabetes 07/20/14 07/19/14 History (3 mL) subcutaneous pen (Levemir FlexTouch U-100 Insulin) metformin 1,000 mg tablet 1,000 mg PO BID diabetes 07/20/14 07/19/14 History (Glucophage) baclofen 10 mg tablet 10 mg PO DAILY PRN PRN Muscle Spasm 05/17/20 Unknown History cyclobenzaprine 10 mg tablet 10 mg PO DAILY PRN PRN Muscle Spasm 05/17/20 Unknown History glimepiride 2 mg tablet 2 mg PO DAILY diabetes 05/17/20 Unknown History amlodipine 5 mg tablet 5 mg PO DAILY blood pressure 02/11/23 Unknown History atorvastatin 40 mg tablet 40 mg PO QHS cholesterol 02/11/23 Unknown History cholecalciferol (vitamin D3) 1,250 1,250 mcg PO QWEEK vitamin 02/11/23 Unknown History mcg (50,000 unit) capsule gabapentin 100 mg capsule 200 mg PO QHS nerve pain 02/11/23 Unknown History meloxicam 15 mg tablet 15 mg PO DAILY osteoarthritis 02/11/23 Unknown History levofloxacin 500 mg tablet 500 mg PO DAILY #7 tabs 02/13/23 Unknown Rx Allergy/AdvReac Type Severity Reaction Status Date / Time alcohol Allergy Rash, Verified 06/26/24 13:15 throat tightening erythritol Allergy Rash, Verified 06/26/24 13:15 throat tightening maltitol Allergy Rash, Verified 06/26/24 13:15 throat tightening sorbitol Allergy Rash, Verified 06/26/24 13:15 throat tightening xylitol Allergy Rash, Verified 06/26/24 13:15 throat tightening aspartame AdvReac Other Verified 06/26/24 13:15 Surgical History History of neck surgery Social History Smoking Status: Never smoker alcohol intake: never substance use type: does not use ROS ROS ED Constitutional Constitutional ED: Reports sweats; Denies chills or fever(s) Eyes Eyes: Denies change in vision Cardiovascular Cardiovascular: Reports as per HPI and chest pain Respiratory/Chest Respiratory/Chest: Denies cough or dyspnea Gastrointestinal Gastrointestinal: Reports nausea and vomiting; Denies abdominal pain Musculoskeletal Musculoskeletal: Reports other Details: left shoulder pain ; Denies arthralgias or back pain Integumentary Denies rash Neurologic Neurologic: Denies paresthesias or weakness Hematologic/Lymphatic Hematologic/Lymphatic: Denies easy bleeding or easy bruising EXAM Physical Exam Const Vital Signs: 06/26/24 12:52 06/26/24 12:52 06/26/24 13:00 Temperature 96.4 F L Temperature Source Temporal Pulse Rate 113 H Respiratory Rate 24 H 24 H Respiratory Effort Short of Breath Blood Pressure 146/108 H 129/49 H Blood Pressure Mean 120 Pulse Ox 99 Oxygen Delivery Method Room Air Oxygen Flow Rate (L/min) 06/26/24 13:00 06/26/24 13:17 Temperature Temperature Source Pulse Rate 100 Respiratory Rate 24 H Respiratory Effort Blood Pressure 150/99 H Blood Pressure Mean 116 Pulse Ox 99 99 Oxygen Delivery Method Nasal Cannula Nasal Cannula Oxygen Flow Rate (L/min) 2 2 Positive well nourished and well developed Constitutional Narrative: Diaphoretic, ill-appearing General Appearance ED: well developed and pallor HEENT Reports dry mucous membranes Mouth ED: Yes dry mucous membranes Mouth: dry mucous membranes Eyes PERRL and EOMs intact bilaterally Neck supple and no JVD Chest Wall inspection of chest normal and palpation of chest normal Resp normal respiratory effort and clear to auscultation bilaterally Cardio no murmurs Rate: tachycardic Peripheral Pulses: pulses 2+ throughout GI normal to inspection, nondistended, normoactive bowel sounds and soft to palpation Extremity normal to inspection General Extremety ED: Negative for edema General Extremity: Negative for edema Neuro oriented x3 Neuro Narrative: Tremulous especially in the upper extremities, patient states this is chronic for him but slightly worse than normal Sensorium / Orientation: awake and alert Motor Exam: Negative for general weakness Psych mental status grossly normal Skin no rashes or lesions noted Skin Narrative: Diaphoretic General Skin Exam: pallor Heart Score History: Highly Suspicious ECG: Significant ST-Depression Age: >/= 65 years Risk Factors: >/= 3 Risk Factors or History of CAD Score: 8 MDM MDM MDM Narrative Medical decision making narrative: Patient evaluated for syncopal episode and chest pain. Prearrival EKG shows ST elevation WI with elevation in lead III and reciprocal changes in the lateral and anterior leads. STEMI alert is called and route. Patient received aspirin and route. IV access obtained. Upon arrival repeat EKG obtained which again shows inferior WI. Patient is given Brilinta and heparin. Is given Zofran for his nausea and vomiting. Case discussed with on-call cardiology, Dr. Maldonado. Patient be taken to the [facility]. Started on gentle IV fluids in the emergency room as well. Is given morphine for his pain. Is not given nitro because of concern of inferior WI. History & Record Review Discussion w/independent historian: EMS personnel Lab Data Attestation: I reviewed the patient's lab results. Labs: Laboratory Results - last 24 hr 06/26/24 06/26/24 12:55 13:04 WBC 11.5 H RBC 4.35 L Hgb 13.4 Hct 40.6 MCV 93.3 MCH 30.8 MCHC 33.0 RDW Std Deviation 44.2 H RDW Coeff of Sandro 13.1 Plt Count 418 MPV 9.2 Immature Gran % (Auto) 0.700 Neut % (Auto) 75.8 H Lymph % (Auto) 16.7 L [place] % (Auto) 5.8 Eos % (Auto) 0.7 Baso % (Auto) 0.3 Absolute Neuts (auto) 8.7 H Absolute Lymphs (auto) 1.92 Nucleated RBC % 0 PT 14.3 INR 1.1 APTT 27.5 Sodium 141 Potassium 4.1 Chloride 108 H Carbon Dioxide 23.0 Anion Gap 10 BUN 31 H Creatinine 1.75 H Estim Creat Clear Calc 43.90 Est GFR (MDRD) Af Amer 50 L Est GFR (MDRD) Non-Af 41 L BUN/Creatinine Ratio 17.7 Glucose 196 H Hemoglobin A1c 8.4 H Calcium 10.0 Troponin I High Sens 1253 H* TSH 4.96 H Rhythm Strip Rhythm Strip: Sinus Tach Rate: 116 Ectopy: None EKG Initial EKG: Attestation: I personally reviewed and interpreted this EKG as follows: Interpretation: Sinus Tachycardia Comments: Sinus tachycardia rate of 116 beats per minutes with fusion complex presents ST elevation in lead III with ST depressions in 1, aVL, V2 through V4 Consistent with ST elevation WI No significant change compared to prearrival EKG. Patient no longer has PVCs. Prior: Changed (EKG on 02/11/2023) Management Discussion w/another healthcare provider: Shell Fisherman Critical Care Time Critical Care Time: Yes Critical care time (excluding procedures): 30-74 minutes (30), Discussing w/Patient &/or Family/Adding Machine Servicer, Discussing w/Consultants and Performing Direct Patient Care at Bedside Discharge Plan Dx/Rx/DC Orders Clinical Impression: ST elevation (STEMI) myocardial infarction, Syncope and collapse Disposition Disposition: Acute Care Hospital [facility] Discharge Date/Time: 06/26/24 13:20
[2024-06-26 13:07] LABS: Absolute Lymphocyte Count 1.92 X10^3/uL (0.83-4.51); Absolute Neutrophil Count 8.7 X10^3/uL (2.0-7.7); Basophil# 0.04 X10^3/uL; Basophil% 0.3 % (0-1); Eosinophil# 0.08 X10^3/uL; Eosinophils% 0.7 % (0-5); Hematocrit 40.6 % (40-54); Hemoglobin 13.4 g/dL (13.0-16.5); Lymphocyte # 1.92 X10^3/ul (0.83-4.51); Lymphocyte % 16.7 % (19-41); Mean Corpuscular Hgb 30.8 pg (27.0-32.0); Mean Corpuscular Volume 93.3 fL (80-94); Mean Platelet Vol. 9.2 fl (6.2-12.0); Monocyte# 0.67 X10^3/uL; Monocyte% 5.8 % (0-10); NRBC Flagged by Analyzer 0 % (0-5); Neutrophil # 8.68 X10^3/uL (2.7-7.7); Neutrophil % 75.8 % (47-70); Platelet Count 418 K/mm3 (150-450); RBC Distribution Width CV 13.1 % (11.6-14.6); RBC Distribution Width SD 44.2 fl (35.1-43.9); Red Blood Count 4.35 M/mm3 (4.6-6.2); White Blood Count 11.5 K/mm3 (4.4-11.0)
[2024-06-26] MEDS: Morphine 4 MG/ML Syringe IV (13:09)
--- NOTE | 2024-06-26 13:11 | HP.PCM.HOS_ITS ---
HPI - General General Date of Admission: 06/26/24 Date of Service: 06/26/24 Chief Complaint: chest pain HPI Narrative MINH WALTERS, is a 69 M with a PMH as outlined who presents via the ED with a complaitn of chest pain and syncope. He was walking to his garage and passed out. Family said they could not feel a pulse and so they started CPR. However by the time EMS arrived patient did have a pulse and was awake and communicative. Patient denied any recent history of chest pain though he admitted to left shoulder pain. He said he did have a bad left shoulder and had recently had a steroid shot. He denied any palpitations or dizziness, lightheadedness, nausea or vomiting or any other symptoms. Review of systems otherwise negative. Vitals in the ED were blood pressure 150/99, pulse rate of 100, respiratory rate of 24 and oxygen saturation of 99% on 2 L of oxygen. CBC showed hemoglobin of 13.4, WBC of 11.5 and platelets of 418. Chemistry was pending and PT/INR was also pending. EKG done by the EMS showed posterior lateral ST elevation [place]. EKG done on arrival in the ED showed posterior inferior ST elevation [place]. He was placed on oxygen and given a bolus of heparin and Brilinta as well as IV morphine. STEMI alert was called and he was sent emergently to the [facility] for cardiac cath. [facility] Medical History Muscle spasm History of diabetes mellitus HTN (hypertension) Dyslipidemia DM2 (diabetes mellitus, type 2) Home Medications ?Medication ?Instructions ?Recorded ?Last Taken ?Type insulin detemir U-100 100 unit/mL 25 units subcut DAILY diabetes 07/20/14 07/19/14 History (3 mL) subcutaneous pen (Levemir FlexTouch U-100 Insulin) metformin 1,000 mg tablet 1,000 mg PO BID diabetes 07/20/14 07/19/14 History (Glucophage) baclofen 10 mg tablet 10 mg PO DAILY PRN PRN Muscle Spasm 05/17/20 Unknown History cyclobenzaprine 10 mg tablet 10 mg PO DAILY PRN PRN Muscle Spasm 05/17/20 Unknown History glimepiride 2 mg tablet 2 mg PO DAILY diabetes 05/17/20 Unknown History amlodipine 5 mg tablet 5 mg PO DAILY blood pressure 02/11/23 Unknown History atorvastatin 40 mg tablet 40 mg PO QHS cholesterol 02/11/23 Unknown History cholecalciferol (vitamin D3) 1,250 1,250 mcg PO QWEEK vitamin 02/11/23 Unknown History mcg (50,000 unit) capsule gabapentin 100 mg capsule 200 mg PO QHS nerve pain 02/11/23 Unknown History meloxicam 15 mg tablet 15 mg PO DAILY osteoarthritis 02/11/23 Unknown History levofloxacin 500 mg tablet 500 mg PO DAILY #7 tabs 02/13/23 Unknown Rx Allergy/AdvReac Type Severity Reaction Status Date / Time alcohol Allergy Rash, Verified 06/26/24 13:15 throat tightening erythritol Allergy Rash, Verified 06/26/24 13:15 throat tightening maltitol Allergy Rash, Verified 06/26/24 13:15 throat tightening sorbitol Allergy Rash, Verified 06/26/24 13:15 throat tightening xylitol Allergy Rash, Verified 06/26/24 13:15 throat tightening aspartame AdvReac Other Verified 06/26/24 13:15 Surgical History History of neck surgery Social History Smoking Status: Never smoker alcohol intake: never substance use type: does not use ROS Constitutional Constitutional: Reports fatigue and malaise; Denies anorexia, chills, fever(s) or weakness Eyes Eyes: Denies change in vision ENT HEENT: Denies dysphagia, headache(s) or sore throat Cardiovascular Cardiovascular: Reports dyspnea on exertion, lightheadedness and syncope; Denies chest pain, edema, orthopnea, palpitations, paroxysmal nocturnal dyspnea or rapid heart rate Respiratory/Chest Respiratory/Chest: Reports dyspnea; Denies cough, productive cough, shortness of breath at rest or shortness of breath with exertion Gastrointestinal Gastrointestinal: Denies abdominal pain, constipation, diarrhea, nausea or vomiting Genitourinary Genitourinary: Denies burning urination Musculoskeletal Musculoskeletal: Reports joint pain; Denies arthralgias Neurologic Neurologic: Denies confusion, disequilibrium, dizziness, focal weakness, headache(s), numbness or seizures Psychiatric Psychiatric: Denies anxiety or depression Endocrine Endocrinology: Denies change in body appearance Hematologic/Lymphatic Hematologic/Lymphatic: Denies anemia Vital Signs Vital Signs Vital Signs: 06/26/24 12:52 06/26/24 12:52 06/26/24 13:00 Temperature 96.4 F L Temperature Source Temporal Pulse Rate 113 H Respiratory Rate 24 H 24 H Respiratory Effort Short of Breath Blood Pressure 146/108 H 129/49 H Blood Pressure Mean 120 Pulse Ox 99 Oxygen Delivery Method Room Air Oxygen Flow Rate (L/min) 06/26/24 13:00 Temperature Temperature Source Pulse Rate Respiratory Rate Respiratory Effort Blood Pressure Blood Pressure Mean Pulse Ox 99 Oxygen Delivery Method Nasal Cannula Oxygen Flow Rate (L/min) 2 Weight Weight: 200 lb 6.403 oz Body Mass Index (BMI) 28.7 Physical Exam Const alert and oriented x3 Constitutional Narrative: looks anxious General Appearance: cooperative HEENT normocephalic, head/scalp atraumatic, moist oral mucous membranes and oropharynx normal Eyes PERRL, EOMs intact bilaterally and conjunctivae normal Neck no lymphadenopathy and supple Resp Resp Narrative: diminished breath sounds bibasally, no wheezes or crackles. on 2L of oxygen by nasal canula. Tachypneic. Cardio regular rate, regular rhythm, S1 normal heart sound, S2 normal heart sound and no murmurs GI normal to inspection, nondistended, normoactive bowel sounds, soft to palpation, non-tender and non-distended Extremity normal to inspection, full ROM and no clubbing, cyanosis or edema Neuro oriented x3, CN's II-XII intact bilaterally, moves all extremities and no focal motor deficits Sensorium / Orientation: awake and alert Motor Exam: strength 5/5 throughout Psych affect normal Results Lab / Micro Data 06/26/24 12:55 06/26/24 12:55 Labs: Laboratory Results - last 24 hr 06/26/24 12:55: WBC 11.5 H, RBC 4.35 L, Hgb 13.4, Hct 40.6, MCV 93.3, MCH 30.8, MCHC 33.0, RDW Std Deviation 44.2 H, RDW Coeff of Sandro 13.1, Plt Count 418, MPV 9.2, Immature Gran % (Auto) 0.700, Neut % (Auto) 75.8 H, Lymph % (Auto) 16.7 L, [place] % (Auto) 5.8, Eos % (Auto) 0.7, Baso % (Auto) 0.3, Absolute Neuts (auto) 8.7 H, Absolute Lymphs (auto) 1.92, Nucleated RBC % 0 Rhythm Strip Rhythm Strip: Sinus Tach Rate: 116 Ectopy: None Assessment & Plan Assessment/Plan (1) ST elevation (STEMI) myocardial infarction: (2) Syncope and collapse: PLAN: Plan #Syncope due to acute STEMI * patient admitted after he passedout whilst walking to his garage at home. * Family thought he had no pulse and so commenced CPR. However, by the time the EMS arrived he was awake nad alert and communicative * denied any chest pain. EKG by EMS showed posterolateral STEMI. EKG in ED showed posterior inferior STEMI. * given heparin bolus and brilinta . Was given aspirin by the EMS * cardiology consulted and patient to be admitted to ICU after the cardia cath * further management to be predicated on cardiac cath findings. * order 2D echo * #HHypertension: on amlodipine. Will benefit from beta marly after the cardiac cath. #Type 2 diabetes mellitus * on glimepiride and levemir insulin 25 units daily. * will hold metformin. * ISS. Accuchecs ACHS * #Hyperlipidemia: on high intensity statin DVT prophylaxis; SCDs after cardiac cath. Code status: full code * Patient counseled extensively about different types of CODE STATUS including full code, DNR CCA and DNR CCA. * Patient elects to be full code. * Total [id number] time 17 minutes. Charges/Coding Visit Charges Inpatient E&M: 57648 Init Hosp L3 Procedures Hospitalists Procedures: 10087 Advncd Care Plan 30 Min
[2024-06-26 13:35] LABS: Anion Gap 10 (5-15); BUN 31 mg/dL (7-18); BUN/Creat Ratio 17.7 RATIO (10-20); Chloride 108 mmol/L (98-107); Creatinine, Serum 1.75 mg/dL (0.70-1.30); EST Glomerular Filtration Rate 41 mL/min (>60); Est Glom Filt Rate - Afr Amer 50 mL/min (>60); Glucose 196 mg/dL (74-106); Potassium 4.1 mmol/L (3.5-5.1); Sodium Level 141 mmol/L (136-145); Troponin-I HS 1253 pg/mL (3.0-78.0)
--- NOTE | 2024-06-26 13:41 | EKG12_ITS ---
Test Reason : Stemi Blood Pressure : / mmHG Vent. Rate : 100 BPM Atrial Rate : 100 BPM P-R Int : 134 ms QRS Dur : 080 ms QT Int : 332 ms P-R-T Axes : 072 -26 075 degrees QTc Int : 428 ms Normal sinus rhythm Inferior infarct (cited on or before 26-JUN-2024) ST & T wave abnormality, consider anterolateral ischemia Abnormal ECG When compared with ECG of 26-JUN-2024 12:51, Fusion complexes are no longer Present Confirmed by JORGE BRADLEY, ADARSH ([id number]), online editor BERTHA ONTIVEROS ([id number]) on 06/29/2024 10:43:46 AM Referred By: Madeline Maldonado Confirmed By:ADARSH PATEL MD
[2024-06-26 14:12] LABS: International Normalized Ratio 1.1; Prothrombin Time (Protime)PT. 14.3 SECONDS (11.7-14.9)
[2024-06-26 14:13] LABS: Partial Thromboplast Time 27.5 Seconds (24.1-36.2)
--- NOTE | 2024-06-26 15:20 | HP.PCM.HOS_ITS ---
HPI - General General Date of Admission: 06/26/24 Date of Service: 06/26/24 Chief Complaint: chest pain HPI Narrative MINH WALTERS, is a 69 M who presented to [facility] ED on 06/26/2024 as a STEMI alert. S/p left heart cath on arrival with Dr. Maldonado. Was found to have multivessel CAD with 100% acute occlusion of the distal RCA that was treated with PTCA with sabianism of JIMENA-3 flow. Patient was transported up to the ICU after the cath in stable condition. Plan per Dr. Maldonado is to transfer the patient to [facility] for possible CABG versus high risk multivessel PCI. Transfer is currently in process. Patient will be admitted here under medicine with cardiology consult until patient is transferred. I saw the patient at bedside in the ICU, and daughter present. Patient was laying back comfortably in bed, conversing normally, in no acute distress. He was breathing comfortably on room air. He had mild sinus tachycardia with heart rate in the low 100s but was otherwise hemodynamically stable. He denied any chest pain or shortness of breath. His main pain currently is mild pain in the wrist and groin catheter insertion sites. Patient states he has hungry and looking forward to eating. No other acute concerns at this time. [facility] Medical History Muscle spasm History of diabetes mellitus HTN (hypertension) Dyslipidemia DM2 (diabetes mellitus, type 2) Home Medications ?Medication ?Instructions ?Recorded ?Last Taken ?Type insulin detemir U-100 100 unit/mL 25 units subcut DAILY diabetes 07/20/14 07/19/14 History (3 mL) subcutaneous pen (Levemir FlexTouch U-100 Insulin) metformin 1,000 mg tablet 1,000 mg PO BID diabetes 07/20/14 07/19/14 History (Glucophage) baclofen 10 mg tablet 10 mg PO DAILY PRN PRN Muscle Spasm 05/17/20 Unknown History cyclobenzaprine 10 mg tablet 10 mg PO DAILY PRN PRN Muscle Spasm 05/17/20 Unknown History glimepiride 2 mg tablet 2 mg PO DAILY diabetes 05/17/20 Unknown History amlodipine 5 mg tablet 5 mg PO DAILY blood pressure 02/11/23 Unknown History atorvastatin 40 mg tablet 40 mg PO QHS cholesterol 02/11/23 Unknown History cholecalciferol (vitamin D3) 1,250 1,250 mcg PO QWEEK vitamin 02/11/23 Unknown History mcg (50,000 unit) capsule gabapentin 100 mg capsule 200 mg PO QHS nerve pain 02/11/23 Unknown History meloxicam 15 mg tablet 15 mg PO DAILY osteoarthritis 02/11/23 Unknown History levofloxacin 500 mg tablet 500 mg PO DAILY #7 tabs 02/13/23 Unknown Rx Allergy/AdvReac Type Severity Reaction Status Date / Time alcohol Allergy Rash, Verified 06/26/24 13:15 throat tightening erythritol Allergy Rash, Verified 06/26/24 13:15 throat tightening maltitol Allergy Rash, Verified 06/26/24 13:15 throat tightening sorbitol Allergy Rash, Verified 06/26/24 13:15 throat tightening xylitol Allergy Rash, Verified 06/26/24 13:15 throat tightening aspartame AdvReac Other Verified 06/26/24 13:15 Surgical History History of neck surgery Social History Smoking Status: Never smoker alcohol intake: never substance use type: does not use ROS Constitutional Constitutional: Denies chills, fatigue, fever(s) or weakness Eyes Eyes: Denies change in vision Cardiovascular Cardiovascular: Denies chest pain Respiratory/Chest Respiratory/Chest: Denies shortness of breath at rest Gastrointestinal Gastrointestinal: Denies abdominal pain Musculoskeletal Musculoskeletal: Denies arthralgias or myalgias Neurologic Neurologic: Denies dizziness, focal weakness or headache(s) Vital Signs Vital Signs Vital Signs: 06/26/24 12:52 06/26/24 12:52 06/26/24 13:00 Temperature 96.4 F L Temperature Source Temporal Pulse Rate 113 H Respiratory Rate 24 H 24 H Respiratory Effort Short of Breath Blood Pressure 146/108 H 129/49 H Blood Pressure Mean 120 Pulse Ox 99 Oxygen Delivery Method Room Air Oxygen Flow Rate (L/min) 06/26/24 13:00 06/26/24 13:17 Temperature Temperature Source Pulse Rate 100 Respiratory Rate 24 H Respiratory Effort Blood Pressure 150/99 H Blood Pressure Mean 116 Pulse Ox 99 99 Oxygen Delivery Method Nasal Cannula Nasal Cannula Oxygen Flow Rate (L/min) 2 2 Weight Weight: 90.9 kg Body Mass Index (BMI) 28.7 Physical Exam Const alert, oriented x3 and no apparent distress Constitutional Narrative: Pleasant elderly male, overweight, mildly fatigued appearing, otherwise laying back comfortably in bed, conversing normally, in no acute distress. General Appearance: cooperative and comfortable HEENT normocephalic, head/scalp atraumatic, hearing grossly normal bilaterally, nasal mucous membranes and turbinates normal and moist oral mucous membranes Eyes PERRL, EOMs intact bilaterally and conjunctivae normal Neck full ROM Chest inspection of chest normal Resp normal respiratory effort, normal air movement, no use of accessory muscles and clear to auscultation bilaterally Cardio no murmurs and peripheral pulses 2+ throughout Cardio Narrative: Tachycardic, regular rhythm. GI normal to inspection, nondistended, normoactive bowel sounds, soft to palpation, non-tender and non-distended Back/Spine normal ROM Extremity Extremity Narrative: Dressings in place over radial and groin catheter insertion sites. No lower extremity edema noted. Skin no rashes or lesions noted Neuro moves all extremities and no focal motor deficits Speech: speech normal Psych mental status grossly normal Results Lab / Micro Data 06/26/24 12:55 06/26/24 12:55 Labs: Laboratory Results - last 24 hr 06/26/24 12:55: WBC 11.5 H, RBC 4.35 L, Hgb 13.4, Hct 40.6, MCV 93.3, MCH 30.8, MCHC 33.0, RDW Std Deviation 44.2 H, RDW Coeff of Sandro 13.1, Plt Count 418, MPV 9.2, Immature Gran % (Auto) 0.700, Neut % (Auto) 75.8 H, Lymph % (Auto) 16.7 L, [place] % (Auto) 5.8, Eos % (Auto) 0.7, Baso % (Auto) 0.3, Absolute Neuts (auto) 8.7 H, Absolute Lymphs (auto) 1.92, Nucleated RBC % 0, PT 14.3, INR 1.1, APTT 27.5, Sodium 141, Potassium 4.1, Chloride 108 H, Carbon Dioxide 23.0, Anion Gap 10, BUN 31 H, Creatinine 1.75 H, Estim Creat Clear Calc 43.90, Est GFR (MDRD) Af Amer 50 L, Est GFR (MDRD) Non-Af 41 L, BUN/Creatinine Ratio 17.7, Glucose 196 H, Calcium 10.0, Troponin I High Sens 1253 H* Rhythm Strip Rhythm Strip: Sinus Tach Rate: 116 Ectopy: None Assessment & Plan Assessment/Plan (1) ST elevation (STEMI) myocardial infarction: QUALIFIERS: Involved coronary artery: right coronary artery Q ualified Code(s): I21.11 - ST elevation (STEMI) myocardial infarction involving right coronary artery PLAN: Plan Patient is a 69-year-old male who presented [facility] ED on 06/26/2024 as a STEMI alert. 1. STEMI ? Admit under inpatient status to ICU. Cardiology following. Was found to have multivessel CAD with 100% acute occlusion of the distal RCA that was treated with PTCA with sabianism of JIMENA-3 flow. Plan is for transfer to [facility] for evaluation for CABG versus high risk multivessel PCI, transfer in process. A1c, lipid panel, TSH ordered. Per cardiology, will start heparin drip about 4 hours after right groin hemostasis has been achieved. Holding Brilinta. Will start aspirin, statin and beta-marly. Continue cardiac monitoring. 2. Type 2 diabetes mellitus ? Home regimen of Levemir 25 units daily, metformin 1000 mg twice daily, glimepiride 2 mg daily. Blood glucose 196 on admit. A1c ordered. Will treat with Lantus 18 units daily and sliding scale insulin with meals, adjust as needed. 3. Hypertension ? Home regimen of only amlodipine 5 mg daily. Noted to be hypertensive after left heart cath. Started Coreg 6.25 mg twice daily and will continue amlodipine. Holding on EDEL inhibitor for now given CKD as noted below. 4. CKD stage III ? Creatinine 1.75, BUN 31 on admit. Baseline creatinine appears to be around 1.5-1.8. Given some supplemental IV fluids prior to cath, will encourage p.o. intake now. Follow-up a.m. BMP and monitor urine output. 5. Chronic pain with neuropathy ? Stable. Continue home gabapentin, baclofen daily as needed and cyclobenzaprine daily as needed. DVT prophylaxis: Not indicated, will be on heparin drip CODE STATUS: Full code, verified Expected disposition: Transfer to tertiary facility Total clinical time spent by myself addressing the patient's medical issues, reviewing all the data, and collaborating with patient's care team: 55 minutes. Charges/Coding Visit Charges Inpatient E&M: 90619 Init Hosp L2
--- NOTE | 2024-06-26 15:31 | PCM.CONS.C ---
Assessment & Plan Assessment/Plan (1) ST elevation (STEMI) myocardial infarction: QUALIFIERS: Involved coronary artery: right coronary artery Qualified Code(s): I21.11 - ST elevation (STEMI) myocardial infarction involving right coronary artery PLAN: Treated with PTCA of the RCA. Patient is currently stable with no chest or shoulder pain. He has multivessel coronary artery disease and will be transferred to [facility] when bed is available for CABG versus high risk multivessel PCI. 4 hours after right groin hemostasis he can be started on heparin by body weight. Hold Brilinta. Patient should be on aspirin, statin, beta-marly. No EDEL inhibitor due to CKD. HPI Consult Data Date of Consult: 06/26/24 HPI Narrative Reason for Consultation: STEMI HPI Narrative: MINH WALTERS, is a 69 M who presents after syncopal episode. Patient was also complaining of chest pain. An EKG was concerning for inferior and posterior [place]. Patient was brought emergently to the [facility] and underwent coronary angiography. He has multivessel coronary artery disease with 100% acute occlusion of the distal RCA that was treated with PTCA with catholic of JIMENA-3 flow in the vessel. We had a stable angiographic result and patient had no chest or shoulder pain. We felt that it is better to transfer the patient for CABG due to his underlying multivessel coronary artery disease. We have made arrangements to transfer patient to [facility] for possible CABG versus high risk multivessel PCI. Review of systems: All systems reviewed. All else is negative except that in [facility] Medical History Muscle spasm History of diabetes mellitus HTN (hypertension) Dyslipidemia DM2 (diabetes mellitus, type 2) Home Medications ?Medication ?Instructions ?Recorded ?Last Taken ?Type insulin detemir U-100 100 unit/mL 25 units subcut DAILY diabetes 07/20/14 07/19/14 History (3 mL) subcutaneous pen (Levemir FlexTouch U-100 Insulin) metformin 1,000 mg tablet 1,000 mg PO BID diabetes 07/20/14 07/19/14 History (Glucophage) baclofen 10 mg tablet 10 mg PO DAILY PRN PRN Muscle Spasm 05/17/20 Unknown History cyclobenzaprine 10 mg tablet 10 mg PO DAILY PRN PRN Muscle Spasm 05/17/20 Unknown History glimepiride 2 mg tablet 2 mg PO DAILY diabetes 05/17/20 Unknown History amlodipine 5 mg tablet 5 mg PO DAILY blood pressure 02/11/23 Unknown History atorvastatin 40 mg tablet 40 mg PO QHS cholesterol 02/11/23 Unknown History cholecalciferol (vitamin D3) 1,250 1,250 mcg PO QWEEK vitamin 02/11/23 Unknown History mcg (50,000 unit) capsule gabapentin 100 mg capsule 200 mg PO QHS nerve pain 02/11/23 Unknown History meloxicam 15 mg tablet 15 mg PO DAILY osteoarthritis 02/11/23 Unknown History levofloxacin 500 mg tablet 500 mg PO DAILY #7 tabs 02/13/23 Unknown Rx Allergy/AdvReac Type Severity Reaction Status Date / Time alcohol Allergy Rash, Verified 06/26/24 13:15 throat tightening erythritol Allergy Rash, Verified 06/26/24 13:15 throat tightening maltitol Allergy Rash, Verified 06/26/24 13:15 throat tightening sorbitol Allergy Rash, Verified 06/26/24 13:15 throat tightening xylitol Allergy Rash, Verified 06/26/24 13:15 throat tightening aspartame AdvReac Other Verified 06/26/24 13:15 Surgical History History of neck surgery Social History Smoking Status: Never smoker alcohol intake: never substance use type: does not use Physical Exam Const alert HEENT normocephalic Eyes no scleral icterus Resp normal respiratory effort Cardio regular rate Skin no rashes or lesions noted Psych mental status grossly normal Risk Stratification Risk Stratification Applicable: No Charges/Coding Visit Charges Inpatient E&M: 77323 Init Hosp L2 Objective Data Vital Signs: Vital Signs Temp Pulse Resp BP Pulse Ox O2 Del Method O2 Flow Rate 96.4 F L 100 24 H 150/99 H 99 Nasal Cannula 2 06/26/24 12:52 06/26/24 13:17 06/26/24 13:17 06/26/24 13:17 06/26/24 13:17 06/26/24 13:17 06/26/24 13:17 Oxygen Flow Rate (L/min) 2 Oxygen Delivery Method Nasal Cannula Weight: 207 lb 10.807 oz Body Mass Index (BMI) 29.7 Intake & Output: Intake and Output for Last 24 Hours 06/24/24 06/25/24 06/26/24 23:59 23:59 23:59 Intake Total 0 / 0 Balance 0 / 0 Lab / Micro Data 06/26/24 12:55 06/26/24 12:55 Labs: Laboratory Results - last 24 hr 06/26/24 12:55: WBC 11.5 H, RBC 4.35 L, Hgb 13.4, Hct 40.6, MCV 93.3, MCH 30.8, MCHC 33.0, RDW Std Deviation 44.2 H, RDW Coeff of Sandro 13.1, Plt Count 418, MPV 9.2, Immature Gran % (Auto) 0.700, Neut % (Auto) 75.8 H, Lymph % (Auto) 16.7 L, [place] % (Auto) 5.8, Eos % (Auto) 0.7, Baso % (Auto) 0.3, Absolute Neuts (auto) 8.7 H, Absolute Lymphs (auto) 1.92, Nucleated RBC % 0, PT 14.3, INR 1.1, APTT 27.5, Sodium 141, Potassium 4.1, Chloride 108 H, Carbon Dioxide 23.0, Anion Gap 10, BUN 31 H, Creatinine 1.75 H, Estim Creat Clear Calc 43.90, Est GFR (MDRD) Af Amer 50 L, Est GFR (MDRD) Non-Af 41 L, BUN/Creatinine Ratio 17.7, Glucose 196 H, Calcium 10.0, Troponin I High Sens 1253 H* Rhythm Strip Rhythm Strip: Sinus Tach Rate: 116 Ectopy: None Cardiology Labs/Tests 06/26/24 12:55: WBC 11.5 H, RBC 4.35 L, Hgb 13.4, Hct 40.6, MCV 93.3, MCH 30.8, MCHC 33.0, Plt Count 418, MPV 9.2, Immature Gran % (Auto) 0.700, Neut % (Auto) 75.8 H, Lymph % (Auto) 16.7 L, [place] % (Auto) 5.8, Eos % (Auto) 0.7, Baso % (Auto) 0.3, Absolute Neuts (auto) 8.7 H, Nucleated RBC % 0, PT 14.3, INR 1.1, APTT 27.5, Sodium 141, Potassium 4.1, Chloride 108 H, Carbon Dioxide 23.0, Anion Gap 10, BUN 31 H, Creatinine 1.75 H, Est GFR (MDRD) Af Amer 50 L, Est GFR (MDRD) Non-Af 41 L, BUN/Creatinine Ratio 17.7, Glucose 196 H, Calcium 10.0 Rhythm: EKG: ECHO: Stress Test: Cardiac Cath: PCI: CT Surgery: Holter monitor: EPS: PPM: CXR: Chest CT Scan:
--- NOTE | 2024-06-26 15:33 | CRPHASE1 ---
Patient Communication Patient Information PHII Cardiac Rehab Discussed with Patient:: Yes Guide to Cardiac Rehab Given to Patient:: Yes Cardiac Rehab Facility Choice List Given to Patient:: Yes Communication to Cardiac Rehab Choice Program [facility] PHII:: Communication Given to CR (Pt to receive additional care at tertiary site r/t CABG) Traffic Attendant:: Madeline Maldonado Refer Phase II Cardiac Rehab:: Yes Sessions:: 36 sessions - 3 days/wk, 12 weeks Cardiac Rehabilitation Info Program Information Cardiac Rehabilitation Program Information: Cardiac Rehab The cardiac rehab team at [facility] consists of highly skilled exercise physiologists, nurses, respiratory therapists and physicians working together with you. Our purpose is to help you have a full recovery and achieve the goals you set for yourself. Over the years many of our patients have returned to activities they assumed they would never do again! We can help restore your confidence and motivation to make lifestyle changes that can have a significant impact on your health and quality of life! We can help answer questions and concerns you may have about exercise, lifestyle, medications, diet, stress and anxiety which are common following a hospitalization. WE monitor ECG and vital signs during exercise and discuss your progress with you and report to your physician(s). Cardiac Rehab is proven to help reduce readmissions, improve functional capacity and lower recurrence of problems with your heart. Our Cardiac Rehab program is Certified by the [place] [employer]monary [employer] (AACVPR) and Accredited by the [employer] through our [facility]. You can contact us at . We invite you to call us with your questions or to get started in our program. If you have other questions or concerns be sure to ask your physician/provider during your follow-up visit. WE look forward to seeing you!
--- NOTE | 2024-06-26 15:35 | CRPH1.INSTRU ---
General Education Discussed with Patient CAD and cardiac anatomy and function:: Patient communicates acknowledgment Explanation of diagnoses and procedures:: Patient communicates acknowledgment Sign/Symptoms of [place]:: Patient communicates acknowledgment Antiplatelet therapy: Patient communicates acknowledgment Proper use of NTG-SL: Patient communicates acknowledgment Emergency procedures and activation of EMS: Patient communicates acknowledgment Smoking Recommendations Recommendations Include:: Smoking cessation strategies/Smoking packet Response Code Nicotine/Smoking Response Code:: Patient communicates acknowledgment Dyslipidemia Risk Factors Patient Dyslipidemia Risk Factors Are:: Total Cholesterol Recommendations Recommendations Include:: Lipid profile not available Response Code Dyslipidemia Response Code:: Patient communicates acknowledgment Overweight/Obesity Risk Factors Patient Overweight/Obesity Risk Factors Are:: BMI Normal [24-29 & > 65 years old] Recommendations Recommendations Include:: Weight loss of 5-10%, Reduced calorie diet and Exercise 5-7 times/week Response Code Overweight/Obesity:: Patient communicates acknowledgment Hypertension Recommendations Recommendations Include:: Maintain BP <130/85 Response Code Hypertension:: Patient communicates acknowledgment Diabetes Risk Factors Patient Diabetes Risk Factors Are:: Elevated blood sugars Recommendations Recommendations Include:: Maintain fasting blood sugars 70-110 md/dL, Maintain HgbA1c of 6% or less, Monitor blood sugar as prescribed, Diabetic dietary guidelines and Decrease/maintain body weight Response Code Diabetes:: Patient communicates acknowledgment Sedentary Recommendations Recommendations Include:: Aerobic exercise 5-7 times/week for 20-30 minutes continuously, Benefits of regular exercise, Discussed home walking program and Monitored Outpatient Cardiac Rehab Response Code Sedentary Response Code:: Patient communicates acknowledgment
--- NOTE | 2024-06-26 15:59 | CL.I_ITS ---
Patient Name: MINH WALTERS Study Date: 06/26/2024 Performing: Levi Maldonado MD Ht: 70 inches 177.8 cm : 1955 Wt: 200.7 lbs 90.9 kg Age: 69 Gender: male BSA: 2.09 PROCEDURE(S) PERFORMED DC02-(54423)LHC/COR IC16-([id number])AMI, MARY KAY OR PTCA, ARTERY/GRAFT, SINGLE VESSEL CLINICAL PROFILE AND CO-MORBIDITIES Indications: ACS <= 24 hrs Heart Failure: None CAD Presentations: STEMI. Symptom onset Date/Time: 06/26/24 Time Not Available CONCLUSIONS Multivessel coronary artery disease as described. Successful PTCA of the proximal mid and distal RCA to restore flow in the distal RCA. RECOMMENDATIONS Transfer to tertiary center for a heart team approach for multivessel revascularization DESCRIPTION OF PROCEDURE The patient arrived to the procedure lab. The risks and benefits of the procedure as well as a full description of our services here and lack of surgical backup were fully explained to the patient and/or their significant other prior to the catheterization. The Timeout was completed, verifying the correct patient and procedure. The patient's procedural site was prepped and draped in the usual fashion. Local anesthetic was given subcutaneously to right radial region with Lidocaine 2%. Local anesthetic was given subcutaneously to right groin region with Lidocaine 2%. Using a modified Seldinger technique, arterial access was obtained via the right radial artery, a 6Fr sheath was inserted., arterial access was obtained via the right femoral artery, a 6Fr sheath was inserted.. Venous access was obtained via the right femoral artery, with Micropuncture set Left Coronary Artery selective angiography was performed in multiple views using a 5 Fr. JL3.5 catheter. Right Coronary Artery selective angiography was then performed in multiple views using a 5 Fr. JR 4 catheter JR4 Guide catheter was inserted and engaged into the RCA. BMW Guide wire was advanced to the RCA. Priority One inserted Pass # 1 Priority One Removed 2.0X12 EUPHORA Balloon catheter was inserted. Balloon catheter was advanced across lesion in the right coronary, distal. PTCA balloon inflated at 8 atms for 9 secs. PTCA balloon inflated at 8 atms for 10 secs. Balloon catheter was repositioned to additional lesion in the right coronary, mid. PTCA balloon inflated at 8 atms for 6 secs. PTCA balloon inflated at 8 atms for 9 secs. Balloon catheter was repositioned to additional lesion in the right coronary, proximal. PTCA balloon inflated at 12 atms for 13 secs. Angiogram performed post balloon dilatation. RUNTHROUGH Guide wire was advanced to the RCA. Guide wire was inserted as a shirley wire The arterial sheath was pulled and a Perclose closure device was deployed for hemostasis, manual pressure applied for hematoma. The arterial sheath was pulled and a TR Band was applied for hemostasis-12 cc air. The venous sheath was then pulled and manual compression applied until hemostasis achieved CORONARY ANGIOGRAPHY DOMINANCE: Right Dominant Very tortuous right radial artery. We were able to perform the diagnostic portion of the procedure through the right radial approach with difficulty. We then had to switch to the right groin for the intervention. This led to delay to PCI due to patient's difficult anatomy. LEFT MAIN: Mild luminal irregularities LEFT ANTERIOR DESCENDING ARTERY: MID LAD: 80 % Stenosis CIRCUMFLEX ARTERY: MID CIRC: 90 % Stenosis RAMUS: 99 % Stenosis RIGHT CORONARY ARTERY: PROX RCA: 90 % Stenosis MID RCA: 95 % Stenosis DISTAL RCA: 100 % Stenosis RT PLV: 85 % Stenosis INTERVENTION INFORMATION LESION SITE: RCA (Distal) Lesion Complexity: High/C, chronic total occlusion: No, lesion at bifurcation: Yes, thrombus present: Yes, lesion length: 15 mm, culprit lesion: Yes, Previously treated lesion: No Pre Stenosis: 100 % Pre intervention JIMENA flow: 0 PROCEDURE: Balloon Angioplasty Post Stenosis: 70 % Post intervention JIMENA flow: 3 Lesion Devices: Salter .014 190cm BMW Naper Straight Cordis 6 Fr JR4 100cm Guide Catheter Terumo Priority One Aspiration Catheter Medtronic SC EUPHORA RX 2.0x12 BALLOON Terumo .014 180cm Runthrough Extra Floppy straight LESION SITE: RCA (Mid) Lesion Complexity: High/C, chronic total occlusion: No, lesion at bifurcation: No, thrombus present: No, lesion length: 15 mm, culprit lesion: Yes, Previously treated lesion: No Pre Stenosis: 95 % Pre intervention JIMENA flow: 2 PROCEDURE: Balloon Angioplasty Post Stenosis: 70 % Post intervention JIMENA flow: 3 Lesion Devices: Salter .014 190cm BMW Naper Straight Cordis 6 Fr JR4 100cm Guide Catheter Terumo Priority One Aspiration Catheter Medtronic SC EUPHORA RX 2.0x12 BALLOON Terumo .014 180cm Runthrough Extra Floppy straight LESION SITE: RCA (Proximal) Lesion Complexity: High/C, chronic total occlusion: No, lesion at bifurcation: No, thrombus present: No, lesion length: 12 mm, culprit lesion: Yes Pre Stenosis: 90 % Pre intervention JIMENA flow: 2 PROCEDURE: Balloon Angioplasty PTCA alone was performed to restore flow. Patient had JIMENA-3 flow with stable result and no symptoms after PTCA. Due to underlying multivessel CAD, we felt that it would be better for the patient to be transferred to a tertiary center for a heart team approach for multivessel revascularization. 70 % Post intervention JIMENA flow: 3 Lesion Devices: Salter .014 190cm BMW Naper Straight Cordis 6 Fr JR4 100cm Guide Catheter Terumo Priority One Aspiration Catheter Medtronic SC EUPHORA RX 2.0x12 BALLOON Terumo .014 180cm Runthrough Extra Floppy straight COMPLICATIONS No Complications PROCEDURE MEDICATIONS Fentanyl 50 mcg IV Fentanyl 50 mcg IV Oxygen: 2 L/min via nasal cannula SUMMARY OF HEMODYNAMIC DATA Time AIR REST ECG 13:32:43 AO 140/-18 (74) SA 13:57:05 AO 145/88 (118) 14:07:03 AO 156/86 (118) 14:17:41 AO 129/80 (103) 14:34:03 Signed By Levi Maldonado MD On 06/27/2024 08:46:30 Signed By Levi Maldonado MD On 06/26/2024 15:58:17 Levi Maldonado MD
[2024-06-26 16:22] LABS: Thyroid Stim Hormone (TSH) 4.96 uIU/mL (0.358-3.74)
[2024-06-26 16:36] LABS: Hemoglobin A1c 8.4 % (3.8-5.6)
[2024-06-26 16:54] LABS: Bedside Glucose 141 mg/dL (74-106)
--- NOTE | 2024-06-26 20:30 | NURSING ---
1999, report called to Shaina MASON at [facility], pt wants called after he leaves, physicians lennieu here now.
--- NOTE | 2024-06-27 09:38 | ECQM.STEMI ---
STEMI STEMI ED Door Time / Other REG STEMI EKG Time (1) ST elevation (STEMI) myocardial infarction: Acute 06/26/24 12:50 Balloon/Aspiration Date-Time Date of Balloon/Aspiration:: 06/26/24 Time of Balloon/Aspiration:: 14:21
== END 2024-06-26 21:02 | disposition short-term general hospital (02) | DRG 251 ==
LOC: ED 13:05 → ICU 13:51
PROVIDERS: Admitting Provider Student in an Organized Health Care Education/Training Program; Emergency Provider Emergency Medicine; PCP Family Medicine; Referring Provider Specialist; Visit Provider Hospitalist
DX: I21.11 ST elevation (STEMI) myocardial infarction involving right coronary artery (principal); E11.22 Type 2 diabetes mellitus with diabetic chronic kidney disease; E11.40 Type 2 diabetes mellitus with diabetic neuropathy, unspecified; N18.30 Chronic kidney disease, stage 3 unspecified; I12.9 Hypertensive chronic kidney disease with stage 1 through stage 4 chronic kidney disease, or unspecified chronic kidney disease; I77.1 Stricture of artery; I25.10 Atherosclerotic heart disease of native coronary artery without angina pectoris; E78.5 Hyperlipidemia, unspecified; Z79.4 Long term (current) use of insulin; R55 Syncope and collapse; G89.29 Other chronic pain; Z79.1 Long term (current) use of non-steroidal anti-inflammatories (NSAID); Z79.84 Long term (current) use of oral hypoglycemic drugs; Z79.899 Other long term (current) drug therapy
CPT/HCPCS: 80048; 82962; 83036; 84443; 84484; 85025; 85610; 85730; 92941; 93005; 93454; 97161; 99152; 99153; 99284; C1757; C1894; Q9967; C1725; C1760; C1769; C1887; C9606; J1327; J2405